=== PATIENT | male | born 1945 | race Caucasian/White ===

== ENCOUNTER → 2017-04-17 | Outpatient (CLI) | payer MEDICARE ==
[2017-04-17 13:41] LABS: HCT 42.7 % (39.0-53.0); HGB 14.4 gm/dL (13.0-17.5); MCH 31.5 pg (25.0-35.0); MCHC 33.8 g/dL (31.0-37.0); MCV 93.3 fL (80.0-100.0); Mean Platelet Volume 6.9; Platelet Count 198 k/uL (150-450); RBC 4.57 m/uL (4.30-5.90); RDW 12.6 % (11.5-15.5); WBC 5.4 k/uL (3.8-10.6)
[2017-04-17 13:49] LABS: Appearance,Urine Clear (Clear); Bilirubin,Urine Negative (Negative); Blood,Urine Negative (Negative); Color,Urine Yellow; Glucose,Urine (UA) Negative (Negative); Ketones,Urine Negative (Negative); Leukocyte Esterase,Urine Negative (Negative); Nitrite,Urine Negative (Negative); Protein,Urine Negative (Negative); Specific Gravity,Urine 1.013 (1.001-1.035); Urobilinogen,Urine <2.0 mg/dL (<2.0)
[2017-04-17 13:57] LABS: Carbon Dioxide 32 mmol/L (22-30); Chloride 100 mmol/L (98-107); Glucose 109 mg/dL (74-99); Potassium 4.8 mmol/L (3.5-5.1); Sodium 141 mmol/L (137-145)
[2017-04-17 13:58] LABS: ALT 38 U/L (21-72); AST 25 U/L (17-59); Alkaline Phosphatase 63 U/L (38-126); Anion Gap 9 mmol/L; Blood Urea Nitrogen 13 mg/dL (9-20); Calcium 9.9 mg/dL (8.4-10.2); Total Bilirubin 0.6 mg/dL (0.2-1.3); Total Protein 6.5 g/dL (6.3-8.2)
[2017-04-17 14:05] LABS: Partial Thromboplastin Time 24.1 sec (22.0-30.0); Prothrombin Time 9.6 sec (9.0-12.0)
== END | disposition home or self-care (01) ==
LOC: LABPAT 12:42
PROVIDERS: ATTEND Orthopaedic Surgery
DX: Z01.812 Encounter for preprocedural laboratory examination (principal); Z51.81 Encounter for therapeutic drug level monitoring; Z79.01 Long term (current) use of anticoagulants
CPT/HCPCS: 36415; 80053; 81003; 85027; 85610; 85730; 87070

== ENCOUNTER 2017-05-07 05:59 | Inpatient (IN) | payer MEDICARE ==
[~2017-05-07 05:59] MED LIST: ACETAMINOPHEN TAB 500 MG TAB PO ONE; DEXAMETHASONE SOD PHOSPHATE 10 MG/ML 1 ML VIAL IV ONE; MELOXICAM 7.5 MG TAB PO ONE; MIDAZOLAM 2 MG/2 ML VIAL IV PRN; MORPHINE SULFATE 4 MG/ML SYRINGE IV PRN; ONDANSETRON 4 MG/2 ML VIAL IVP ONE; SCOPOLAMINE 1.5MG/72HR PATCH TRANSDERM ONE; TRANEXAMIC ACID 1,000 MG in SODIUM CHLORIDE 0.9% 50 ML IVPB ONE; ceFAZolin IN SWFI 2 GM/20 ML SYRINGE IVP ONE
[2017-05-07] MEDS ORDERED: ROPIVACAINE 246.25 MG, EPINEPHrine 0.5 MG, KETOROLAC 30 MG, cloNIDine HCL/PF 80 MCG, WA... MISCELLANE ONE ×5 (06:01)
[2017-05-07] MEDS: LACTATED RINGERS 1,000 ML IV SCH (06:39)
[2017-05-07] MEDS ORDERED: LIDOCAINE 1% 20 ML VIAL (10MG/ML) FOR IV START INTRADERMA ONE (06:40)
[2017-05-07] MEDS ORDERED: NA PHOS,M-B/NA PHOS,DI-BA 133 ML ENEMA RECTAL PRN (07:27)
[2017-05-07] MEDS ORDERED: DIAZEPAM 5 MG TAB PO PRN ×2 (07:27)
[2017-05-07] MEDS ORDERED: hydrOXYzine PAMOATE 25 MG CAP PO PRN (07:27)
[2017-05-07] MEDS ORDERED: BISACODYL 10 MG SUPP RECTAL PRN (07:27)
[2017-05-07] MEDS ORDERED: ONDANSETRON 4 MG/2 ML VIAL IVP PRN (07:27)
[2017-05-07] MEDS ORDERED: HYDROmorphone 0.5 MG/0.5 ML SYRINGE IVP PRN ×4 (07:27)
[2017-05-07] MEDS ORDERED: MAGNESIUM HYDROXIDE 2,400 MG/10 ML CUP PO PRN (07:27)
[2017-05-07] MEDS ORDERED: NALOXONE 0.4 MG/ML 1 ML VIAL IV PRN (07:27)
[2017-05-07] MEDS ORDERED: HYDROcodone/APAP 5-325MG 1 EACH TAB PO PRN (07:27)
[2017-05-07] MEDS ORDERED: MIDAZOLAM 2 MG/2 ML VIAL ONE (07:30)
[2017-05-07] MEDS ORDERED: TRANEXAMIC ACID 1,000 MG/10 ML VIAL ONE (07:30)
[2017-05-07] MEDS ORDERED: fentaNYL (PF) 50 MCG/ML 2 ML AMP ONE (07:30)
[2017-05-07] MEDS ORDERED: SODIUM CHLORIDE 0.9% 100 ML BAG ONE (07:30)
[2017-05-07] MEDS ORDERED: diphenhydrAMINE 50 MG/ML 1 ML VIAL ONE (07:30)
[2017-05-07] MEDS ORDERED: ceFAZolin 3,000 MG in SODIUM CHLORIDE 0.9% IRRIGATIO 3,000 ML IRRIGATION ONE (07:58)
[2017-05-07] MEDS ORDERED: LACTATED RINGERS 1,000 ML IV ONE (08:13)
--- NOTE | 2017-05-07 08:13 | P.ONQ ---
Anesthesiology Proc Note - PNB - Peripheral Nerve Block Performed Left Adductor Canal Infusion Time Out Performed: Yes (710) Procedure Start Time: 07:11 Procedure Stop Time: :23 Indication: Acute Post-Operative Pain, Requested by physician Sedation Type: Sedate with meaningful contact maintained Preparation: Sterile Dressing Position: Supine Catheter: Indwelling Needle Types: On-Q Needle Size: 100mm (4") Needle Gauge: 20 Technique: Ultrasound Injectate: 0.5% Ropivacaine (see comment for volume) (30 mls) Blood Aspirated: No Pain Paresthesia on Injection Noted: No Resistance on Injection: Normal Events: Uneventful and Well Tolerated
[2017-05-07] MEDS ORDERED: ASPIRIN 325 MG TAB PO SCH (09:00)
--- NOTE | 2017-05-07 09:02 | P.OP ---
Date of Procedure: 05/07/17 Preoperative Diagnosis: Severe osteoarthritis left knee Postoperative Diagnosis: Severe osteoarthritis left knee Procedure(s) Performed: Left total knee arthroplasty Implants: Mohan and Nephew Oxinium femoral component size 7, left Mohan & Nephew Meeta II left nonporous tibial baseplate size 6 Mohan [employer] Nephew size 11 mm Legion XLPE dished articular insert, size 5-6 Mohan [employer] Nephew Meeta II resurfacing patellar component, 35 mm All components were cemented using Fran bone cement.. The articulation is Oxinium on polyethylene. Anesthesia: spinal Surgeon: Adam Farris Mental Tester #1: Carmela Nam Estimated Blood Loss (ml): 50 Pathology: other (Bone and cartilage) Condition: stable Disposition: PACU Indications for Procedure: After failure of conservative treatment we discussed the surgical and nonsurgical treatment options at length. Patient wishes to proceed with a total knee arthroplasty. Complications specific to this procedure were discussed at length, including but not limited to infection, bleeding, stiffness , and nerve injury. Patient is aware of all these complications and informed consent was obtained Operative Findings: The operative findings are consistent with severe osteoarthritis of the left knee Description of Procedure: Patient was seen in the preoperative area consent was reviewed and operative site was marked with a skin marker. An adductor canal pain catheter was placed by anesthesia in the preoperative area. Patient was then brought to the operating room and given preoperative antibiotics intravenously. A spinal anesthetic was administered by the anesthesia department. A tourniquet was placed on the upper thigh and the lower extremity was prepped and draped in usual sterile fashion. A gram of transexamic acid was given. A universal timeout was then performed which confirmed the patient's name, surgical site, ALLERGIES, and consent. The lower extremity was then exsanguinated and tourniquet was inflated to 250 mmHg. A standard and anterior midline approach to the knee was performed. The skin and subcutaneous tissue was dissected down to the patellar tendon. A medial parapatellar arthrotomy was then performed. The knee was then extended, the patellar was everted, and the knee was again flexed. Anterior horns of both menisci were excised, and a release was performed to the posterior medial aspect of the knee. On gross visual inspection, there was complete loss of articular cartilage in the medial and patellofemoral joint spaces. There was also significant cartilage damage in the lateral compartment. There were multiple periarticular osteophytes which were then removed with a Ronguer. The femoral canal was then opened with the appropriate drill, and the intramedullary femoral cutting guide was then placed and set for 4 of valgus. The distal femoral cutting block was then pinned in place, and the distal femur was then cut. The cutting block was then removed and the cut was checked for flatness. Next, the sizing guide was then placed and set for 3 external rotation based off of the epicondylar axis and Whitesides line. After the femur was sized, the appropriate 4-in-1 cutting block was then pinned in place. The anterior condyles were cut without notching. The posterior and chamfer cuts were performed while protecting the collateral ligaments. The cutting block was then removed, and the femoral canal was plugged with autologous bone. Attention was then directed to the tibia. The remaining ACL was removed with a Ronguer, and the tibia was then gently subluxed forward with a large bent knee retractor. Any remaining menisci was excised. The posterior lateral corner was cauterized in order to cauterize the lateral geniculate artery. The extra medullary tibial cutting guide was then placed, set for the appropriate rotation , slope, and depth of resection. The proximal tibia cutting guide was then pinned in place. Proximal tibia was then cut and sized. Next trials were then placed with the appropriate-sized insert. The knee was able to fully extend and flex to 130 and was stable throughout all range of motion. The knee was then extended, patella everted. Patella was then measured, and then using an osteotomy guide, the patella was cut at the appropriate level. The patella was then measured and drilled and the patella trial was then placed. The knee was then taken through range of motion with the patella trial and the patella tracked normally. The knee was then extended patella trial was then removed and the patella was everted. Knee was then flexed and lug holes were drilled through the femoral trial and the femoral trial was then removed. The tibial was then exposed, and the tibial broach guide was then pinned in place after it was set for the appropriate rotation to allow for the most coverage without overhang. The tibia was then reamed and broached. The cut surfaces of bone were then irrigated with pulsatile lavage. The posterior structures were injected with the ropivacaine solution. The knee was also irrigated with Irrisept solution. The components were then opened, the cement was mixed, and the components were then cemented in place. The cement was allowed to harden with the knee in full extension. While the cement was hardening, the remaining soft tissues were then injected with a ropivacaine solution, which consisted of 246.25 mg of ropivacaine, 0.5 mg of epinephrine, 30 mg of Toradol, 80 g of clonidine, and 48.45 mL of sterile water, for a total of 100 mL of fluid injected. After the cemented hardened. The tourniquet was released, and hemostasis was obtained. A second gram of transexamic acid was given. The knee was again irrigated. The knee was again taken through range of motion and found to be stable throughout all range of motion of 0-130 , and the patella tracked normally. The fascia was then closed with #2 strata fix suture. The subcutaneous tissue was closed with 3-0 Vicryl and 3-0 strata fix. Dermabond glue was used for the skin and placed with the knee in flexion. The patient was placed in a sterile silver dressing. Patient was then transferred to recovery room in stable condition. The fire control assistant MADELEINE Geller was required due the complexity surgery and the need for a skilled household assistant. She assisted in positioning, draping, retraction, and closure of the wound.
--- NOTE | 2017-05-07 09:51 | XR ---
EXAMINATION TYPE: XR knee limited LT DATE OF EXAM: 05/07/2017 COMPARISON: NONE TECHNIQUE: Two views submitted HISTORY: Post op FINDINGS: There is a prosthetic knee in near anatomic alignment. There is soft tissue edema and emphysema. IMPRESSION: 1. Postoperative change. Appears in near-anatomic alignment
[2017-05-07] MEDS ORDERED: ROPIVACAINE 1,100 MG, SODIUM CHLORIDE 0.9% 330 ML MISCELLANE PRN ×2 (10:22)
[2017-05-07 16:42] VITALS: BMI 32.3
[2017-05-07] MEDS ORDERED: NITROGLYCERIN SL TABS 0.4 MG TAB SUBLINGUAL PRN (18:36)
[2017-05-07] MEDS: SODIUM CHLORIDE 0.9% 1,000 ML IV SCH (19:22)
[2017-05-07] MEDS ORDERED: SENNOSIDES-DOCUSATE SODIUM 1 EACH TAB PO SCH (21:00)
[2017-05-07] MEDS ORDERED: LOSARTAN-HCTZ 50-12.5 MG 1 EACH TAB PO SCH (21:00)
[2017-05-07] MEDS ORDERED: ATORVASTATIN 80 MG TAB PO SCH (21:00)
--- NOTE | 2017-05-07 23:59 | PN ---
PROGRESS NOTE DATE OF SERVICE: 05/07/2017. ATTENDING PHYSICIAN: Dr. Farris. CONSULTING PHYSICIAN: Dr. Sukhi Walters. CHIEF COMPLAINT: Reevaluation post surgery. HISTORY OF PRESENT ILLNESS: This is a 71-year-old gentleman who has undergone a left total knee arthroplasty. At the time of my visit, the patient is actually standing up, ambulating, with well- controlled pain. REVIEW OF SYSTEMS: Neuro: Denies any headaches dizziness. Psych: No anxiety. Cardiac: No chest pain, angina, palpitations. Respiratory: No shortness of breath, cough, hemoptysis. GI: No nausea, vomiting, abdominal pain, diarrhea. : No dysuria, hematuria. Extremities: Denies pain. Constitutional: No fevers, chills. PHYSICAL EXAMINATION: Pleasant, in no distress. VITAL SIGNS: Temperature 97.8, pulse 69, respirations 16, blood pressure 133/79, pulse ox 93% room air. HEENT: Normocephalic. NECK: No JVD. CHEST: Clear to auscultation and percussion. CARDIAC: Normal S1, S2 with no gallops, murmurs, rubs. EXTREMITIES: Reveal left leg with an Josias wrap. NEUROLOGIC: Awake, alert, oriented, well-coordinated movements of both upper extremities. The patient is ambulating with a walker. LABORATORY ASSESSMENT: None new. ASSESSMENT: 1. Coronary artery disease, stable. 2. Hypertension, controlled. 3. History of benign tremors. 4. Status post left total knee arthroplasty. PLAN: The patient is stable. Continue present medical regimen. Patient's condition discussed with the patient. MMODL / IJN: [id number] /
[2017-05-08] MEDS: ASPIRIN 325 MG TAB PO SCH ×2 (00:39→08:22)
[2017-05-08] MEDS: SODIUM CHLORIDE 0.9% 1,000 ML IV SCH ×2 (01:57→02:26)
[2017-05-08] MEDS: ceFAZolin IN SWFI 2 GM/20 ML SYRINGE IVP SCH ×2 (02:22→10:57)
[2017-05-08] MEDS: HYDROcodone/APAP 5-325MG 1 EACH TAB PO PRN ×2 (05:16→10:27)
--- NOTE | 2017-05-08 07:15 | P.PN ---
Progress Note - Text The patient is status post left adductor canal catheter placement. The catheter was placed for postoperative pain control, status post total left arthroplasty. Ropivacaine 0.2% is infusing at 8 mLs per hour. The patient has no complaints of left lower extremity numbness or weakness. Patient's VAS score is 1 -10. Assessment: Patient's adductor canal catheter is in place and working appropriately. Plan: continue infusion and adjust it as needed.
[2017-05-08 07:23] LABS: Basophils % (A) 0 %; Eosinophils # (A) 0.1 k/uL (0-0.7); Eosinophils % (A) 1 %; HCT 35.6 % (39.0-53.0); HGB 11.9 gm/dL (13.0-17.5); Lymphocytes # (A) 1.1 k/uL (1.0-4.8); Lymphocytes % (A) 11 %; MCH 30.8 pg (25.0-35.0); MCHC 33.4 g/dL (31.0-37.0); MCV 92.2 fL (80.0-100.0); Mean Platelet Volume 7.2; Monocytes # (A) 0.7 k/uL (0-1.0); Monocytes % (A) 7 %; Neutrophils # (A) 7.6 k/uL (1.3-7.7); Neutrophils % (A) 79 %; Platelet Count 169 k/uL (150-450); RBC 3.85 m/uL (4.30-5.90); RDW 12.2 % (11.5-15.5); WBC 9.6 k/uL (3.8-10.6)
[2017-05-08] MEDS: LACTATED RINGERS 1,000 ML IV SCH (08:20)
[2017-05-08] MEDS ORDERED: MELOXICAM 7.5 MG TAB PO SCH (09:00)
[2017-05-08] MEDS ORDERED: MAGNESIUM OXIDE 400 MG TAB PO SCH (09:00)
[2017-05-08] MEDS ORDERED: PROPRANOLOL LA 80 MG CAP.SA.24H PO SCH (09:00)
--- NOTE | 2017-05-08 09:41 | P.DS ---
Providers Date of admission: 05/07/17 05:59 Expected date of discharge: 05/08/17 Attending physician: Adam Farris Consults: 05/07/17 07:27 Consult Physician Routine Consulting Provider: Pedro Walters Consult Reason/Comments: medical management Do you want consulting provider notified?: Yes Primary care physician: Pedro Walters - Discharge Diagnosis(es) (1) Primary osteoarthritis of left knee Current Visit: Yes Status: Acute (2) S/P total knee arthroplasty Current Visit: Yes Status: Acute Hospital Course: This is a 71-year-old male with known history of degenerative arthritis of the left knee. The patient presents for evaluation. After discussion and consideration patient elects to proceed with total knee arthroplasty. The patient is seen preoperatively by Dr. Farris and cleared for surgery. Patient is admitted to [facility] on 05/07/2017 for total knee arthroplasty. The procedures performed without complication or sequelae. The patient is doing well postoperatively. Labs and vital signs are stable on day of discharge. On day of discharge patient's knee incision is healing well. There is minimal erythema. There is no drainage noted at this time. There is minimal soft tissue swelling to the knee. Patient has full foot and ankle motion without difficulty or pain. Neurovascular status to the left lower extremity is intact. Patient is discharged home in good condition. Please see med rec for accurate list of home medications. Plan - Discharge Summary Discharge Rx Participant: No New Discharge Prescriptions: New Aspirin 325 mg PO BID #60 tab HYDROcodone/APAP 5-325MG [Omro 5-325] 1 - 2 tab PO Q4-6H PRN #90 tab PRN Reason: Pain Sennosides [Senokot] 1 tab PO BID #60 tablet No Action Propranolol LA [Inderal LA] 80 mg PO QAM Magnesium Gluconate [Magonate] 500 mg PO DAILY Losartan-Hctz 50-12.5 mg [Hyzaar 50-12.5] 0.5 tab PO HS Atorvastatin [Lipitor] 80 mg PO HS #90 tab Nitroglycerin Sl Tabs [Nitrostat] 0.4 mg SUBLINGUAL Q5M PRN #25 tab PRN Reason: Chest Pain Furosemide [Lasix] 40 mg PO QAM PRN PRN Reason: LEG EDEMA Aspirin [Adult Low Dose Aspirin EC] 81 mg PO DAILY Discharge Medication List Propranolol LA [Inderal LA] 80 mg PO QAM 02/23/14 [History] Losartan-Hctz 50-12.5 mg [Hyzaar 50-12.5] 0.5 tab PO HS 11/15/15 [History] Magnesium Gluconate [Magonate] 500 mg PO DAILY 11/15/15 [History] Atorvastatin [Lipitor] 80 mg PO HS #90 tab 12/07/15 [Rx] Nitroglycerin Sl Tabs [Nitrostat] 0.4 mg SUBLINGUAL Q5M PRN #25 tab 12/07/15 [Rx ] Aspirin [Adult Low Dose Aspirin EC] 81 mg PO DAILY 04/26/17 [History] Furosemide [Lasix] 40 mg PO QAM PRN 04/26/17 [History] Aspirin 325 mg PO BID #60 tab 05/08/17 [Rx] HYDROcodone/APAP 5-325MG [Omro 5-325] 1 - 2 tab PO Q4-6H PRN #90 tab 05/08/17 [ Rx] Sennosides [Senokot] 1 tab PO BID #60 tablet 05/08/17 [Rx] Follow up Appointment(s)/Referral(s): Adam Farris DO [Doctor of Osteopathic Medicine] - 05/21/17 9:45 am Ambulatory/Diagnostic Orders: Continuous Passive Motion (CPM) Machine [DME.AMB1] Time Frame: 3 Weeks, Location : Determined By Patient Activity/Diet/Wound Care/Special Instructions: Weightbearing as tolerated with a walker CPM 5-6h daily Leave dressing intact. May be removed by home care nurse in 10 days, 05/18/2017. May shower with dressing on. [facility] with questions or concerns [phone] Discharge Disposition: HOME WITH HOME HEALTH SERVICES
[2017-05-08 14:18] VITALS: BP 128/73; PULSE 78; RESP 17; TEMP 98.5
--- NOTE | 2017-05-08 23:42 | PN ---
PROGRESS NOTE ATTENDING PHYSICIAN: Dr. Adam Farris. CONSULTING PHYSICIAN: Dr. Daryl Walters. CHIEF COMPLAINT: Re-evaluation. HISTORY OF PRESENT ILLNESS: This gentleman is 79 years of age. He is status post left total knee arthroplasty. He is doing fairly well. The patient had some more discomfort today compared to yesterday; however, is still able to ambulate. The patient has a history of coronary artery disease, stable with no symptoms of angina. History of hypertension, controlled. History of benign tremors, controlled. REVIEW OF SYSTEMS: NEURO: Denies any headaches or dizziness. PSYCH: No anxiety. CARDIAC: No chest pain, angina, palpitations. RESPIRATORY: No shortness of breath, cough. GI: No nausea, vomiting, abdominal pain, diarrhea. Did have a bowel movement. : No symptoms of dysuria, hematuria. EXTREMITIES: Pain in the left knee. CONSTITUTIONAL: No fever or chills. PHYSICAL EXAMINATION: Pleasant gentleman in no distress. Vital signs reveals temperature 97.1, pulse 69, respirations 16, blood pressure 148/86, pulse ox 95% on room air. HEENT: Normocephalic. NECK: No JVD. CHEST: Clear to auscultation and percussion. CARDIAC: Normal S1, S2 with no gallops, murmurs. ABDOMEN: Soft. Bowel sounds present. EXTREMITIES: No edema. NEUROLOGIC: Awake, alert, oriented with well-coordinated movements, both upper extremities. LABORATORY ASSESSMENT: CBC which reveals a hemoglobin of 11.9. ASSESSMENT: 1. Coronary artery disease, stable. 2. Hypertension, controlled. 3. Benign tremors. 4. Degenerative arthritis, left knee. PLAN: Patient is stable. Continue present medical regimen. Patient's condition discussed with the patient. Prognosis guarded. The patient is planned for discharge today. MMODL / IJN: [id number] /
== END 2017-05-08 15:25 | disposition home health service (06) | DRG 470 ==
LOC: 2ORMAIN 05:59 → 3SUR 15:43
PROVIDERS: ADMIT Orthopaedic Surgery; ATTEND Orthopaedic Surgery
PROC: 0SRD069 Replacement of Left Knee Joint with Oxidized Zirconium on Polyethylene Synthetic Substitute, Cemented, Open Approach (ICD-10-PCS; principal; 2017-05-07 07:30)
DX: M17.12 Unilateral primary osteoarthritis, left knee (principal); E78.5 Hyperlipidemia, unspecified; G25.0 Essential tremor; I10 Essential (primary) hypertension; I25.10 Atherosclerotic heart disease of native coronary artery without angina pectoris; H91.90 Unspecified hearing loss, unspecified ear; M25.561 Pain in right knee; M25.551 Pain in right hip; Z79.82 Long term (current) use of aspirin; Z79.899 Other long term (current) drug therapy; Z96.651 Presence of right artificial knee joint; Z96.642 Presence of left artificial hip joint; Z82.49 Family history of ischemic heart disease and other diseases of the circulatory system
CPT/HCPCS: 85025; 88300

== ENCOUNTER → 2018-01-12 | Outpatient (CLI) | payer MEDICARE ==
[2018-01-12 18:01] LABS: C Reactive Protein <0.4 mg/dL (0.0-0.8); Carbon Dioxide 26.4 mmol/L (21.6-31.8); Chloride 105 mmol/L (96-109); Cholesterol 129 mg/dL (0-200); Creatine Kinase 102 U/L (35-257); Glucose 105 mg/dL (70-110); Potassium 4.1 mmol/L (3.5-5.5); Sodium 140 mmol/L (135-145)
[2018-01-12 18:02] LABS: ALT 27 U/L (10-49); AST 23 U/L (14-35); Albumin/Globulin Ratio 2.15 (1.20-2.10); Alkaline Phosphatase 59 U/L (41-126); Calcium 9.4 mg/dL (8.7-10.3); Total Bilirubin 0.9 mg/dL (0.3-1.2); Total Protein 6.3 g/dL (6.2-8.2)
== END ==
LOC: LABWHC1 11:20
PROVIDERS: ATTEND Internal Medicine
DX: I25.10 Atherosclerotic heart disease of native coronary artery without angina pectoris (principal); E78.5 Hyperlipidemia, unspecified; M79.10 Myalgia, unspecified site
CPT/HCPCS: 36415; 80053; 80061; 82550; 86140

== ENCOUNTER → 2018-05-21 | Outpatient (CLI) | payer MEDICARE ==
[2018-05-21 11:26] LABS: Blood Urea Nitrogen 17 mg/dL (9-20)
--- NOTE | 2018-05-21 12:56 | CT ---
EXAMINATION TYPE: CT chest w con DATE OF EXAM: 05/21/2018 COMPARISON: Chest x-ray April 16, 2018 HISTORY: Wheezing, shortness of breath being treated with little relief CT DLP: 721 mGycm. Automated Exposure Control for Dose Reduction was Utilized. TECHNIQUE: CT scan of the thorax is performed following with IV Contrast, patient injected with 100 mL of Isovue 300. FINDINGS: LUNGS: The lungs are grossly clear, there is no concerning parenchymal mass or nodule identified. T here is no pleural effusion or pneumothorax seen. The tracheobronchial tree is patent. MEDIASTINUM: There are no greater than 1 cm hilar or mediastinal lymph nodes. No cardiomegaly or pe ricardial effusion is seen. Moderate to severe 3 vessel coronary artery calcification is present. OTHER: Dependent calcified gallstone is seen. There are 2 subcentimeter low dense lesions scattered t hroughout the liver that are too small to further characterize but presumed benign, for reference lar julius lesion left hepatic dome axial image 50 is noted. Liver is diffusely low dense suggesting fatty i nfiltration. IMPRESSION: No suspicious acute or chronic pulmonary process.
== END ==
LOC: RADCTMAIN 10:45
PROVIDERS: ATTEND Internal Medicine Critical Care Medicine
DX: J20.9 Acute bronchitis, unspecified (principal)
CPT/HCPCS: 82565; 84520; 71260; 36415; Q9967

== ENCOUNTER → 2020-03-08 | Outpatient (CLI) | payer MEDICARE ==
--- NOTE | 2020-03-09 11:02 | MR ---
EXAMINATION TYPE: MR lumbar spine wo con DATE OF EXAM: 03/08/2020 COMPARISON: None HISTORY: 74-year-old male M25.5, with pain in the bilateral lower extremities TECHNIQUE: Multiplanar, multisequence images of the lumbar spine were acquired. FINDINGS: There is a degenerated levoconvex scoliosis of the lumbar spine. Vertebral body heights are preserved. There is a degenerative grade 1 retrolisthesis at L1-L2 and L2-L3. Multilevel advanced hypertrophic facet arthropathy. Moderate degenerative disc disease with desiccated, mildly narrowed, diffusely bulging discs. Anterio r endplate spondylosis is present. Conus medullaris is normal. No suspicious bone marrow replacement. Some mild scattered fatty Modic type II endplate changes prese nt anteriorly at various levels. At T12-L1, diffuse disc bulge impressing on the ventral thecal sac. No significant canal or foraminal stenosis. At L1-L2, facet arthropathy with trace grade 1 retrolisthesis and diffuse disc bulge impressing on th e ventral thecal sac. No significant spinal canal stenosis. There is mild left neuroforaminal stenosi s and possible abutment of the traversing left L2 nerve root. At L2-L3, hypertrophic facet arthropathy with ligamentum flavum thickening, grade 1 retrolisthesis, d iffuse disc bulge. Overall mild narrowing of the spinal canal. There is moderate right neuroforaminal stenosis. Right lateral broad-based disc bulge may impinge the extraforaminal right L2 nerve root. At L3-L4, diffuse disc bulge. Prominent dorsal epidural fat and ligamentum flavum thickening as well as facet arthropathy. There is overall mild spinal canal stenosis with moderate right and mild left n euroforaminal stenosis. Disc material may abut the traversing right L4 nerve root. At L4-L5, diffuse disc bulge with hypertrophic facet arthropathy. No significant spinal canal stenosi s. There is moderate bilateral neuroforaminal stenosis. At L5-S1, hypertrophic facet arthropathy. Minimal bulging disc. No spinal canal stenosis. Moderate to severe left and mild right neural foraminal stenosis. No prevertebral or paravertebral soft tissue abnormality. IMPRESSION: 1. Degenerated levoconvex scoliosis of the lumbar spine. 2. Hypertrophic facet arthropathy with degenerative grade 1 retrolisthesis at L1-L2 and L2-L3. 3. Changes results in overall mild spinal canal stenosis at L2-L3 and L3-L4. No high-grade canal comp romise. 4. Moderate to severe left neural foraminal stenosis at L5-S1. Moderate on both sides at L4-L5 and mo derate on the right at both L2-L3 and L3-L4. 5. At L1-L2, disc material may abut the traversing left L2 nerve root. A large lateral disc bulge tow ards the right at L2-L3 may impinge the extraforaminal right L2 nerve root. Also, there may be abutme nt of the traversing right L4 nerve root at L3-L4. Correlate for any corresponding radicular symptoms .
== END | disposition home or self-care (01) ==
LOC: RADMRIMAIN 13:14
PROVIDERS: ATTEND Orthopaedic Surgery
DX: M48.07 Spinal stenosis, lumbosacral region (principal); M48.061 Spinal stenosis, lumbar region without neurogenic claudication; M51.26 Other intervertebral disc displacement, lumbar region; M43.16 Spondylolisthesis, lumbar region; M47.816 Spondylosis without myelopathy or radiculopathy, lumbar region; M41.86 Other forms of scoliosis, lumbar region
CPT/HCPCS: 72148

== ENCOUNTER → 2020-04-19 | Outpatient (CLI) | payer MEDICARE ==
[2020-04-19 10:59] VITALS: BP 149/90; PULSE 80; RESP 18; TEMP 97.2
--- NOTE | 2020-04-19 11:20 | P.PAINCN ---
History of Present Illness - Reason for Consult Consult date: 04/19/20 - History of Present Illness This is 74 years old male with a chronic history of severe low back pain with radiation to the lower extremity started more than 5 years ago, intensity overall of the pain increased over time, the pain currently is constant and localized in the low back area with radiation to the hip and buttock bilaterally more prominent on the right side, patient tried different kind of pain medication without any significant benefit, intensity of the pain is 8-10 over 10 interfering with her quality of life, he denies any motor or sensory deficits he denies any fever or night sweats with and that is no change in the bowel movement or urination Past Medical History Past Medical History: Coronary Artery Disease (CAD), COPD, GERD/Reflux, Hyperlipidemia, Hypertension, Osteoarthritis (OA) Additional Past Medical History / Comment(s): Tinnitis bilateral ears, essential tremors, occasional edema reanna legs History of Any Multi-Drug Resistant Organisms: MRSA Year Discovered:: 2017 MDRO Source:: leg Past Surgical History: Joint Replacement, Orthopedic Surgery, Tonsillectomy Additional Past Surgical History / Comment(s): rt knee replacement x2, 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 Smoking Status: Former smoker Past Alcohol Use History: Occasional Additional Past Alcohol Use History / Comment(s): smoked for a couple years in eary 20's Past Drug Use History: None Reported - Past Family History Sister(s) Family Medical History: Cancer Additional Family Medical History / Comment(s): Twin sisters with breast cancer. Mother Family Medical History: Osteoarthritis (OA) Father Family Medical History: Osteoarthritis (OA) Additional Family Medical History / Comment(s): Father is living and is in his 90's. Medications and Allergies Home Medications Medication Instructions Recorded Confirmed Type Magnesium Gluconate [Magonate] 500 mg PO DAILY 11/15/15 04/19/20 History Aspirin [Adult Low Dose Aspirin EC] 81 mg PO DAILY 04/26/17 04/19/20 History Albuterol Nebulized [Ventolin 2.5 mg INHALATION Q6H PRN 04/15/20 04/19/20 History Nebulized] Atorvastatin [Lipitor] 40 mg PO DAILY 04/15/20 04/19/20 History Budesonide-Formot 160-4.5 Mcg 2 puff INHALATION BID PRN 04/15/20 04/19/20 History [Symbicort 160-4.5 Mcg Inhaler] Celecoxib [CeleBREX] 200 mg PO DAILY 04/15/20 04/19/20 History Furosemide [Lasix] 40 mg PO DAILY PRN 04/15/20 04/19/20 History Hydrochlorothiazide 12.5 mg PO DAILY 04/15/20 04/19/20 History [hydroCHLOROthiazide] Ipratropium Dorset 0.06%Nasal 1 spr EA NOSTRIL TID PRN 04/15/20 04/19/20 History [Atrovent Nasal 0.06%] Losartan Potassium [Cozaar] 50 mg PO DAILY 04/15/20 04/19/20 History Metoprolol Succinate [Toprol XL] 75 mg PO DAILY 04/15/20 04/19/20 History Omeprazole 20 mg PO HS 04/15/20 04/19/20 History Triamcinolone 0.1% Cream [Kenalog 1 applic TOPICAL DIRECTED PRN 04/15/20 04/19/20 History 0.1% Cream] Ubidecarenone [Co Q-10] 100 mg PO DAILY 04/15/20 04/19/20 History traMADol HCL [Ultram] 50 mg PO Q6HR PRN 04/15/20 04/19/20 History Allergies Allergy/AdvReac Type Severity Reaction Status Date / Time No Known Allergies Allergy Verified 04/15/20 15:44 Physical Exam Vitals: Vital Signs Temp Pulse Resp BP Pulse Ox 04/19/20 10:48 97.2 F L 80 18 149/90 97 Physical Examinations : -Constitutiona : Cooperative , not in acute distress . -HEENT : nech : supple , no Lymphadenopathy , normal thyroid size . : eyes : no ptosis , no icterus, no photophobia . - neurologic : Cranial nerve II to XII intact , no focal neurological deffecit . -psychatric : alert , oriented X 3 , appropriate affect , intact judgment and insight . -Lymphatic : no Lymphadenopathy . - musculoskeltal : Lumber spine moter stegnth lower extremities ,thigh and legs 5/5 Right side , 5/5 Left side deep tendon reflexes : normal Knee Jerk , normal ankle Jerk lumber facet Loading Test =positive Right , positive Left Range of motion of the lumbar spine Flexion 60 degrees, extension 30 degrees strait leg raising test = negative bilaterally Fabere test= negative bilaterally . Sever tenderness over the right Sacroiliac joints Results Comments: MRI of the lumbar spine multilevel lumbar facet arthropathy at T11 lumbar degenerative disc disease and multilevel lumbar foraminal stenosis Assessment and Plan Plan: Assessment and plan=1-lumbar spondylosis with lumbar facet arthropathy without myelopathy. 2-lumbar degenerative disc disease. 3-right sacroiliitis. A shunt would be good candidate to diagnostic medial branch blocks lumbar area at L3, L4, L5 and possible RFA Time with Patient: Greater than 30 PQRS Measure Charge Sheet Measure #130: Documentation of Current Meds in Medical Chart: Patient's medications documented in chart Measure #226: Tobacco Use: Screen & Cessation Intervention: Pt not a tobacco user Measure #111: Pneumonia Vaccination: Pneumococcal vaccine NOT administered or previously given Measure #47: Advance Care Plan: Advance care planning discussed & documented, pt chose/unable to give Measure #412: Opioid Treatment Agreement: No documentation of signed opioid treatment agreement Measure #408: Opioid Therapy Follow-up Evaluation: Patient had NO f/u eval minimum every 3 months during opioid therapy Measure #317: Preventitive Care & Scrn High Bld Press & F/U: Pre-hypertensive or hypertensive BP documented, pt will f/u with PCP Measure #128: Body Mass Index (BMI) Screening & Follow-up: BMI documented ABOVE normal parameters - f/u documented Measure #131: Pain Assessment & Follow-up: Pain positive & plan documented, Follow-up scheduled Measure #431: Unhealthy Alcohol Use Preventative Care & Scrn: Patient not identified as an unhealthy alcohol user PQRS Narrative: Smoking Status Never smoker Blood Pressure 149/90 Pain Intensity [Bilateral Knee 5 ] Pain Intensity [Bilateral 5 Lower Back] Scale Used Numeric (1 - 10) Hx Alcohol Use (MH) Yes Home Medications: Ambulatory Orders Magnesium Gluconate [Magonate] 500 mg PO DAILY 11/15/15 Aspirin [Adult Low Dose Aspirin EC] 81 mg PO DAILY 04/26/17 Albuterol Nebulized [Ventolin Nebulized] 2.5 mg INHALATION Q6H PRN 04/15/20 Atorvastatin [Lipitor] 40 mg PO DAILY 04/15/20 Budesonide-Formot 160-4.5 Mcg [Symbicort 160-4.5 Mcg Inhaler] 2 puff INHALATION BID PRN 04/15/20 Celecoxib [CeleBREX] 200 mg PO DAILY 04/15/20 Furosemide [Lasix] 40 mg PO DAILY PRN 04/15/20 Hydrochlorothiazide [hydroCHLOROthiazide] 12.5 mg PO DAILY 04/15/20 Ipratropium Dorset 0.06%Nasal [Atrovent Nasal 0.06%] 1 spr EA NOSTRIL TID PRN 04/15/20 Losartan Potassium [Cozaar] 50 mg PO DAILY 04/15/20 Metoprolol Succinate [Toprol XL] 75 mg PO DAILY 04/15/20 Omeprazole 20 mg PO HS 04/15/20 Triamcinolone 0.1% Cream [Kenalog 0.1% Cream] 1 applic TOPICAL DIRECTED PRN 04/15/20 Ubidecarenone [Co Q-10] 100 mg PO DAILY 04/15/20 traMADol HCL [Ultram] 50 mg PO Q6HR PRN 04/15/20
== END | disposition home or self-care (01) ==
LOC: PNWHC3 10:26
PROVIDERS: ATTEND Specialist
DX: M51.36 Other intervertebral disc degeneration, lumbar region (principal); M47.816 Spondylosis without myelopathy or radiculopathy, lumbar region; M46.1 Sacroiliitis, not elsewhere classified; Z79.899 Other long term (current) drug therapy; Z79.891 Long term (current) use of opiate analgesic; Z79.82 Long term (current) use of aspirin
CPT/HCPCS: 99211

== ENCOUNTER 2020-05-07 09:39 | Day surgery (SDC) | payer MEDICARE ==
[2020-05-04 15:25] VITALS: BMI 31.6
[~2020-05-07 09:39] MED LIST changes: -ACETAMINOPHEN TAB 500 MG TAB PO ONE; -DEXAMETHASONE SOD PHOSPHATE 10 MG/ML 1 ML VIAL IV ONE; +LACTATED RINGERS 1,000 ML IV SCH; -MELOXICAM 7.5 MG TAB PO ONE; -MIDAZOLAM 2 MG/2 ML VIAL IV PRN; -MORPHINE SULFATE 4 MG/ML SYRINGE IV PRN; -ONDANSETRON 4 MG/2 ML VIAL IVP ONE; -SCOPOLAMINE 1.5MG/72HR PATCH TRANSDERM ONE; -TRANEXAMIC ACID 1,000 MG in SODIUM CHLORIDE 0.9% 50 ML IVPB ONE; -ceFAZolin IN SWFI 2 GM/20 ML SYRINGE IVP ONE
[2020-05-07 10:01] VITALS: RESP 16; TEMP 97.1
[2020-05-07] MEDS ORDERED: LIDOCAINE 1% (10MG/ML) FOR IV START INTRADERMA ONE (10:07)
[2020-05-07] MEDS ORDERED: ROPIVACAINE 5MG/ML 20ML VIAL ONE (10:11)
[2020-05-07] MEDS ORDERED: fentaNYL (PF) 50 MCG/ML 2 ML AMP ONE (10:11)
[2020-05-07] MEDS ORDERED: TRIAMCINOLONE ACETONIDE 40 MG/ML 1 ML VIAL ONE (10:11)
[2020-05-07] MEDS ORDERED: IOPAMIDOL M200 10 ML VIAL ONE (10:11)
[2020-05-07] MEDS ORDERED: MIDAZOLAM 2 MG/2 ML VIAL ONE (10:11)
--- NOTE | 2020-05-07 10:26 | P.PCN ---
Date of Procedure: 05/07/20 Description of Procedure: PREOPERATIVE DIAGNOSIS : Lumbar spondylosis with Facet Arthropathy without myelopathy POSTOPERATIVE DIAGNOSIS: same PROCEDURE: [first/second] Diagnostic lumbar medial branch block with fluoroscopy at L3, L4, L5 [bilateral] which covers facets L4-5 and L5-S1 ANESTHESIA: Local anesthetic; moderate IV sedation with Versed and fentanyl, sedation time 10 min Fluoroscopy was used for the procedure and images were saved in the radiology portion of the chart. Surgeon: Martin Glover MD PROCEDURE INDICATION: Lumbar back pain without radiculopathy, not responsive to conservative management. PROCEDURE DESCRIPTION: the patient was seen and identified in the preop holding area , risks and benefits and possible complications of the procedure and alternatives were discussed with the patient, and the patient agreed to proceed with the procedure and signed the consent . IV was started , vital signs were monitored during the procedure and fluoroscopy was used to maximize the benefit and accuracy of the needle placement, and sedation was given to decrease p atient anxiety. Patient was taken to the procedure room and placed in prone position. The lumbar region was prepped using chlorhexidineX-2. Under strict sterile technique using AP fluoroscopy the bilateral sacral ala were identified and using ipsilateral oblique fluoroscopy ,the junction of the transverse process and the superior articulating process of the L4, L5 vertebra which corresponds to the fluoroscopy image of the eye of the Amadou dog for the medial branches were identified. Subsequently, after local infiltration of skin with lidocaine 1% 0.2 mL at each level , a 25-gauge 3.5 Quincke-type needle was placed at the junction of the base of the transverse process and the superior articular process at the appropriate level as well as the sacral ala, and the needle was advanced until the periosteum contacted, needle placement confirmed with AP and oblique fluoroscopy, 0.2 mL of Isovue 200 per level was injected which revealed no vascular uptake and after negative aspiration, mixture of 1mL 0.5% ropivacaine with 40 mg kenalog (total 40 mg used throughout all levels) was injected at each level and the needle subsequently removed . At the end of the procedure and the needles were removed and a bandage applied after the skin was cleaned. The patient was taken to recovery room in stable condition and monitors in the recovery room for 20-30 minutes and discharged home in stable condition after discharge criteria met and patient will follow up in clinic in 2 weeks EBL: Minimal COMPLICATION: None.
[2020-05-07] MEDS ORDERED: IV FLUID CONTINUATION 700 ML IV ONE (10:30)
[2020-05-07 10:59] VITALS: BP 138/73; PULSE 64
--- NOTE | 2020-05-07 11:12 | FL ---
EXAMINATION TYPE: FL guided pain mgmt statistic DATE OF EXAM: 05/07/2020 HISTORY: Fluoroscopy time 8 seconds of fluoroscopy provided. IMPRESSION: 1. Fluoroscopy time.
== END 2020-05-07 11:05 | disposition home or self-care (01) ==
LOC: ORPAIN 09:39
PROVIDERS: ATTEND Anesthesiology
DX: M47.816 Spondylosis without myelopathy or radiculopathy, lumbar region (principal); R20.2 Paresthesia of skin; R20.0 Anesthesia of skin; G25.0 Essential tremor; I25.10 Atherosclerotic heart disease of native coronary artery without angina pectoris; I10 Essential (primary) hypertension; E78.5 Hyperlipidemia, unspecified; J44.9 Chronic obstructive pulmonary disease, unspecified; M19.90 Unspecified osteoarthritis, unspecified site; H91.90 Unspecified hearing loss, unspecified ear; K21.9 Gastro-esophageal reflux disease without esophagitis; Z79.891 Long term (current) use of opiate analgesic; Z79.899 Other long term (current) drug therapy; Z79.1 Long term (current) use of non-steroidal anti-inflammatories (NSAID); Z79.51 Long term (current) use of inhaled steroids; Z79.82 Long term (current) use of aspirin
CPT/HCPCS: 64493; 64494; J2250; J3301; J3010; Q9966; J2795

== ENCOUNTER → 2020-05-24 | Outpatient (CLI) | payer MEDICARE ==
--- NOTE | 2020-05-24 10:15 | P.PN ---
Subjective Progress Note Date: 05/24/20 This is a follow-up visit for this 74 years old male with a history of severe low back pain, he is diagnosed with lumbar spondylosis with lumbar facet arthropathy with radiculopathy, and lumbar degenerative disc disease and sacroiliitis, status post diagnostic medial branch block lumbar area, at L3, and L4, L5, Amena reported that he gets more than 80% improvement in his pain, and he was able to do more activity , and he decreased his opioid consumption, particularly if was only for short-term, and is here for follow-up visit and evaluation Objective - Vital Signs Vital signs: Vital Signs Temp 98.6 F 05/24/20 09:51 Pulse 77 05/24/20 09:51 Resp 16 05/24/20 09:51 BP 119/74 05/24/20 09:51 Pulse Ox 90 L 05/24/20 09:51 Intake & Output 05/23/20 05/24/20 05/24/20 18:59 06:59 18:59 Weight 112.491 kg - Exam Physical Examinations : -Constitutiona : Cooperative , not in acute distress . -HEENT : nech : supple , no Lymphadenopathy , normal thyroid size . : eyes : no ptosis , no icterus, no photophobia . - neurologic : Cranial nerve II to XII intact , no focal neurological deffecit . -psychatric : alert , oriented X 3 , appropriate affect , intact judgment and insight . -Lymphatic : no Lymphadenopathy . - musculoskeltal : Lumber spine moter stegnth lower extremities ,thigh and legs 5/5 Right side , 5/5 Left side deep tendon reflexes : normal Knee Jerk , normal ankle Jerk lumber facet Loading Test =positive Right , positive Left Range of motion of the lumbar spine Flexion 60 degrees, extension 30 degrees strait leg raising test = negative bilaterally Fabere test= negative bilaterally . Sever tenderness over the right Sacroiliac joints Assessment and Plan Plan: Assessment and plan=1-lumbar spondylosis with lumbar facet arthropathy 2-Lumbar degenerative disc disease. 3-sacroiliitis. Patient had excellent pain relief after the first diagnostic medial branch block and he'll be good candidate to have second diagnostic Medial branch at L3, L4, L5 bilaterally - PQRS measures = - Patient's medications are documented in the chart. -Tobacco use is negative and counseling.Given. -Patient's has not received pneumococcal vaccine. -Advanced care planning discussed, patient not eligible. -Opiate contract not signed. -Pain positive and follow-up visit/procedure is scheduled. -Patient's blood pressure measured [ 118/74] , and documented in the record ,and patient will follow up with the primary care. -Patient's weight was measured and body mass index [ 31.8 ] above the normal limits and counseling was done. and patient instructed to follow-up with the primary care physician. -Patient was not identified as an unhealthy alcohol user Time with Patient: Less than 30
== END | disposition home or self-care (01) ==
CPT/HCPCS: 99211

== ENCOUNTER 2020-06-11 07:21 | Day surgery (SDC) | payer MEDICARE ==
[2020-06-10 09:32] VITALS: BMI 31.6
[2020-06-11 07:53] VITALS: RESP 16; TEMP 98.2
[2020-06-11] MEDS ORDERED: TRIAMCINOLONE ACETONIDE 40 MG/ML 1 ML VIAL ONE (07:58)
[2020-06-11] MEDS ORDERED: ROPIVACAINE 5MG/ML 20ML VIAL ONE (07:58)
--- NOTE | 2020-06-11 08:11 | P.PCN ---
Date of Procedure: 06/11/20 Surgeon: Mary Acosta Pathology: none sent Condition: stable Disposition: PACU Description of Procedure: Description of Procedure: PREOPERATIVE DIAGNOSIS : Lumbar spondylosis with Facet Arthropathy without myelopathy POSTOPERATIVE DIAGNOSIS: same PROCEDURE: [first/second] Diagnostic lumbar medial branch block with fluoroscopy at L3, L4, L5 [bilateral] which covers facets L4-5 and L5-S1 ANESTHESIA: Local anesthesia with lidocaine 1% only Fluoroscopy was used for the procedure and images were saved in the radiology portion of the chart. PROCEDURE INDICATION: Lumbar back pain without radiculopathy, not responsive to conservative management. PROCEDURE DESCRIPTION: the patient was seen and identified in the preop holding area , risks and benefits and possible complications of the procedure and alternatives were discussed with the patient, and the patient agreed to proceed with the procedure and signed the consent . IV was started , vital signs were monitored during the procedure and fluoroscopy was used to maximize the benefit and accuracy of the needle placement, and sedation was given to decrease patient anxiety. Patient was taken to the procedure room and placed in prone position. The lumbar region was prepped using chlorhexidineX-2. Under strict sterile technique using AP fluoroscopy the bilateral sacral ala were identified and using ipsilateral oblique fluoroscopy ,the junction of the transverse process and the superior articulating process of the L4, L5 vertebra which corresponds to the fluoroscopy image of the eye of the Amadou dog for the medial branches were identified. Subsequently, after local infiltration of skin with lidocaine 1% 0.2 mL at each level , a 25-gauge 3.5 Quincke-type needle was placed at the junction of the base of the transverse process and the superior articular process at the appropriate level as well as the sacral ala, and the needle was advanced until the periosteum contacted, needle placement confirmed with AP and oblique fluoroscopy, 0.2 mL of Isovue 200 per level was injected which revealed no vascular uptake and after negative aspiration, mixture of 1mL 0.5% ropivacaine with 40 mg kenalog (total 40 mg used throughout all levels) was injected at each level and the needle subsequently removed . At the end of the procedure and the needles were removed and a bandage applied after the skin was cleaned. The patient was taken to recovery room in stable condition and monitors in the recovery room for 20-30 minutes and discharged home in stable condition after discharge criteria met and patient will follow up in clinic in 2 weeks EBL: Minimal COMPLICATION: None.
[2020-06-11 08:17] VITALS: BP 162/79; PULSE 73
--- NOTE | 2020-06-11 13:02 | FL ---
Fluoroscopy HISTORY: Pain 6 seconds fluoroscopy time supplied to the referring clinician. 4 intraoperative C-arm images docume nt the procedure. See dictated report from anesthesia.
== END 2020-06-11 08:37 ==
LOC: ORPAIN 07:21
PROVIDERS: ATTEND Anesthesiology
DX: M47.816 Spondylosis without myelopathy or radiculopathy, lumbar region (principal); I25.10 Atherosclerotic heart disease of native coronary artery without angina pectoris; Z95.5 Presence of coronary angioplasty implant and graft
CPT/HCPCS: 64493; 64494; J3301; J2795

== ENCOUNTER → 2020-07-12 | Outpatient (CLI) | payer MEDICARE ==
[2020-07-12 10:14] VITALS: BP 123/78; PULSE 79; RESP 16; TEMP 95
--- NOTE | 2020-07-12 10:48 | P.PN ---
Subjective Progress Note Date: 07/12/20 Florin is a 74-year-old gentleman who presents today for follow-up after having bilateral lumbar medial branch blocks 2. He reports greater than 90% relief from the diagnostic testing. He reports he still having some relief from the diagnostic testing. He reports his VAS today is 2 out of 10. He found that the injections significantly improve his function. Is able to bend over and stand up from a kneel position which he normally has a lot of trouble with. He denies any significant weakness down his legs. He has chronic numbness in his lower extremity is which she reports is from his knee replacement. The numbness is from the mid renner down to his feet but denies any shooting pain down the leg. He uses occasional NSAIDs for pain. Review of Systems: Denies any New chest pain, short of breath, Nausea/vomitting, abdominal pain, bowel or bladder incontinence, or any overt new neurologic sym ptoms in his upper or lower extremities. Objective - Vital Signs Vital signs: Vital Signs Temp 95.0 F L 07/12/20 10:11 Pulse 79 07/12/20 10:11 Resp 16 07/12/20 10:11 BP 123/78 07/12/20 10:11 Pulse Ox 94 L 07/12/20 10:11 - Exam General: Awake and alert oriented 3 no distress Respiratory exam: No audible wheezing no accessory muscle usage Cardiovascular exam: regular rate, palpable bilateral pulses, no lower extremity edema Abdominal exam: No distention nontender to palpation Cervical spine: Normal alignment, Spurling's negative, facet loading negative, Auricular Acupuncturist strength is 5/5, roman negative Lumbar spine: Loss of lumbar lordosis, normal alignment, tender to palpation over bilateral paraspinal muscles, facet loading is positive bilaterally. Straight leg raise is negative. Limited range of motion due to pain with flexion, extension and side bending. Facet loading is positive bilateral Neuro exam: Normal sensation in bilateral upper extremities, deep tendon reflexes are 2+ bilateral upper extremities. Normal sensation in bilateral lower extremities. Deep tendon reflexes are 2+ in lower extremities (not at the patella and sees had bilateral knee replacement) Psych exam: Cooperative, appropriate mood Assessment and Plan Assessment: #1 lumbar spondylosis without myelopathy Plan: Given johnson robust improvement from the medial branch blocks, I have discussed the radiofrequency ablation in detail with the patient is white. I went over the spine model and What we would be doing as well as the expectations from the procedure. He like to move forward with the procedure. We'll schedule him for bilateral lumbar radiofrequency ablation of the L4 5 and L5-S1 levels. I have spent 21 minutes on patient care today. The time was used to review the medical records including relevant urine studies and Prescription history (MAPs), review of the available imaging, evaluation and examination of the patient, coordination of care with the medical staff and if applicable referring physicians, as well as creation of the medical record.
== END ==
LOC: PNWHC3 09:59
PROVIDERS: ATTEND Hospitalist
DX: M47.816 Spondylosis without myelopathy or radiculopathy, lumbar region (principal); M17.12 Unilateral primary osteoarthritis, left knee; M16.11 Unilateral primary osteoarthritis, right hip
CPT/HCPCS: 99211

== ENCOUNTER 2020-08-20 10:05 | Day surgery (SDC) | payer MEDICARE ==
[2020-08-18 15:24] VITALS: BMI 31.6
[2020-08-20 10:26] VITALS: RESP 16; TEMP 97.1
[2020-08-20] MEDS ORDERED: LIDOCAINE 1% (10MG/ML) FOR IV START INTRADERMA ONE (10:30)
[2020-08-20] MEDS ORDERED: LACTATED RINGERS 1,000 ML IV ONE (10:30)
[2020-08-20] MEDS ORDERED: LIDOCAINE 1% INJ 10MG/ML (20 ML MDV) ONE (10:38)
[2020-08-20] MEDS ORDERED: ROPIVACAINE 5MG/ML 20ML VIAL ONE (10:38)
[2020-08-20] MEDS ORDERED: fentaNYL (PF) 50 MCG/ML 2 ML AMP ONE (10:38)
[2020-08-20] MEDS ORDERED: MIDAZOLAM 2 MG/2 ML VIAL ONE (10:38)
--- NOTE | 2020-08-20 11:17 | P.PCN ---
Date of Procedure: 08/20/20 Description of Procedure: PREOPERATIVE DIAGNOSIS: Lumbar Spondylosis POSTOPERATIVE DIAGNOSIS: Same PROCEDURES: Radiofrequency ablation of the L3, L4, L5 medial branches with fluoroscopic guidance bilaterally SURGEON: Martin Glover MD. ANESTHESIA: Lidocaine 1% 5 mL, Monitored anesthesia care with anesthesia team EBL: Minimal Fluoroscopy was used for the procedure and images were saved in the radiology portion of the chart. PROCEDURE INDICATION: The patient with low back pain secondary to lumbar facet arthropathy who had more than 50% relief of pain with previous diagnostic lumbar medial branch block X2. PROCEDURE DESCRIPTION / TECHNIQUE: The patient was seen and identified in the preoperative area. Risks, benefits, complications, including but not limited to risk of infection ,bleeding , allergic reactions to the medications and incomplete pain relief , and alternatives were discussed with the patient, the patient agreed to proceed with the procedure and signed the consent. IV was started. The operative site was marked. Patient was taken to the OR and time out was completed. The patient was placed in the prone position on the procedure table. The lumbar area was prepped and draped in the usual sterile fashion. . Vital signs were closely monitored during the procedure .IV sedation was used during the procedure to decrease patient's anxiety. Using AP and then oblique fluoroscopy, the "eye of the Amadou dog" corresponding to the connection between the superior and transverse articular processes of the L4 and L5 as well as the sacral ala were identified, marked, and localized with 1% lidocaine. Subsequently, an 18 [id number] cannula with a 10-mm active tip was advanced guided by fluoroscopy to the identified target at each site. Needle positioning was confirmed on AP, oblique and lateral fluoroscopy. Motor testing at 2.5 Hz was done with paraspinal muscle stimulation only, and no radicular symptoms down the legs. Then 1 mL 0.5% ropivacaine was injected in each site. Radiofrequency thermocoagulation at 80 degrees celsius for 90 seconds was then performed. Chinle were removed. Sterile dressings were applied. COMPLICATIONS: No acute complications. DISPOSITION / PLANS: The patient was placed in a supine position and transferred to the recovery area in a stable condition for observation and was discharged from the recovery room after meeting discharge criteria. Home discharge instructions given to the patient by the staff. The patient will follow up in clinic in 4 weeks.
[2020-08-20 11:25] VITALS: PULSE 65
[2020-08-20] MEDS ORDERED: IV FLUID CONTINUATION 1,000 ML IV ONE (11:29)
[2020-08-20 11:54] VITALS: BP 134/81
--- NOTE | 2020-08-20 13:02 | FL ---
Fluoroscopy HISTORY: Pain 36 seconds fluoroscopy time supplied to the referring clinician. 10 intraoperative C-arm images docu ment the procedure. See dictated report from anesthesia.
== END 2020-08-20 12:08 | disposition home or self-care (01) ==
LOC: ORPAIN 10:05
PROVIDERS: ATTEND Anesthesiology
DX: M47.816 Spondylosis without myelopathy or radiculopathy, lumbar region (principal); I25.10 Atherosclerotic heart disease of native coronary artery without angina pectoris; I10 Essential (primary) hypertension; E78.5 Hyperlipidemia, unspecified; J44.9 Chronic obstructive pulmonary disease, unspecified; M19.90 Unspecified osteoarthritis, unspecified site; R25.1 Tremor, unspecified; Z79.899 Other long term (current) drug therapy; Z79.82 Long term (current) use of aspirin
CPT/HCPCS: 64635; 64636; J2250; J2001; J3010; J2795

== ENCOUNTER → 2020-09-20 | Outpatient (CLI) | payer MEDICARE ==
[2020-09-20 09:20] VITALS: BP 178/66; PULSE 70; RESP 18; TEMP 98.5
--- NOTE | 2020-09-20 09:41 | P.PN ---
Subjective Progress Note Date: 09/20/20 This is a follow-up visit for this 74 years old male with a history of severe low back pain, he is diagnosed with lumbar spondylosis with lumbar facet arthropathy with radiculopathy, and lumbar degenerative disc disease and sacroiliitis, status post RFA medial branch block lumbar area, at L3, and L4, L5, Amena reported that he gets more than 70% improvement in his pain, and he was able to do more activity , and he decreased his opioid consumption, Currently patient reported that he had only localized pain in the left hip area, pain in the left hip area increases with any activity especially walking Physical Examinations : -Constitutiona : Cooperative , not in acute distress . -HEENT : nech : supple , no Lymphadenopathy , normal thyroid size . : eyes : no ptosis , no icterus, no photoph obia . - neurologic : Cranial nerve II to XII intact , no focal neurological deffecit . -psychatric : alert , oriented X 3 , appropriate affect , intact judgment and insight . -Lymphatic : no Lymphadenopathy . - musculoskeltal : Lumber spine moter stegnth lower extremities ,thigh and legs 5/5 Right side , 5/5 Left side deep tendon reflexes : normal Knee Jerk , normal ankle Jerk lumber facet Loading Test =positive Right , positive Left Range of motion of the lumbar spine Flexion 60 degrees, extension 30 degrees strait leg raising test = negative bilaterally Fabere test= negative bilaterally . Sever tenderness over the left trochanteric bursa Assessment and Plan Plan: Assessment and plan=1-lumbar spondylosis with lumbar facet arthropathy 2-Lumbar degenerative disc disease. 3-sacroiliitis. 4-left trochanteric bursitis Patient had excellent pain relief after the RFA medial branch Lumbar area. A shunt could benefit from left trochanteric bursa steroid injections under fluoroscopy guidance - PQRS measures = - Patient's medications are documented in the chart. -Tobacco use is negative and counseling.Given. -Patient's has not received pneumococcal vaccine. -Advanced care planning discussed, patient not eligible. -Opiate contract not signed. -Pain positive and follow-up visit/procedure is scheduled. -Patient's blood pressure measured [ 178/66 ] , and documented in the record ,and patient will follow up with the primary care. -Patient's weight was measured and body mass index [ 31.7 ] above the normal limits and counseling was done. and patient instructed to follow-up with the primary care physician. -Patient was not identified as an unhealthy alcohol user Objective - Vital Signs Vital signs: Vital Signs Temp 98.5 F 09/20/20 09:15 Pulse 70 09/20/20 09:15 Resp 18 09/20/20 09:15 BP 178/66 09/20/20 09:15 Pulse Ox 95 09/20/20 09:15
== END ==
LOC: PNWHC3 09:04
PROVIDERS: ATTEND Specialist
DX: M47.816 Spondylosis without myelopathy or radiculopathy, lumbar region (principal); M51.36 Other intervertebral disc degeneration, lumbar region; M46.1 Sacroiliitis, not elsewhere classified; M70.62 Trochanteric bursitis, left hip
CPT/HCPCS: 99211

== ENCOUNTER → 2020-09-22 | Outpatient (CLI) | payer MEDICARE ==
[2020-09-22 12:30] LABS: African American GFR (CKD) >90 (>60 ml/min/1.73 sqM); Blood Urea Nitrogen 14 mg/dL (9-20); Non-African American GFR(CKD) >90 (>60 ml/min/1.73 sqM)
--- NOTE | 2020-09-22 13:15 | CT ---
EXAMINATION TYPE: CT ChestAbdPelvis w con DATE OF EXAM: 09/22/2020 COMPARISON: 05/21/2018 HISTORY: Waldenstrom macroglobulinemia. CT DLP: 1884.9 mGycm CONTRAST: CT scan of the chest, abdomen and pelvis is performed with Oral Contrast and with IV Contrast, patien t injected with 100 mL of Isovue M300. CT Chest: LUNGS: The lungs are clear and free of infiltrate or atelectasis. No pulmonary nodule or mass is det ected. No pleural effusion or CT evidence of interstitial lung disease. MEDIASTINUM: Thoracic aorta is of normal caliber. The heart is not enlarged. No evidence for media stinal mass or adenopathy. HILAR STRUCTURES: No evidence for mass. No hilar adenopathy is appreciated. OTHER: No significant abnormality. CONTRAST CT ABDOMEN AND PELVIS FINDINGS: LIVER/GB: Mild hepatic steatosis seen. Small gallstones identified in the region of the gallbladder n selina. Subcentimeter hepatic cyst left hepatic lobe medial segment as well as the lateral segment. Bili neel tree is of normal caliber. PANCREAS: No inflammation. No distinct mass. SPLEEN: No splenic enlargement. No lesion seen. ADRENALS: No nodule. No thickening. KIDNEYS/BLADDER: No hydronephrosis. No nephrolithiasis. Simple cyst upper left kidney. No solid atilio al lesions identified. Additional 1 cm cyst lower pole right kidney. BOWEL: Normal appendix. Normal bowel caliber. No inflammation. GENITAL ORGANS: No gross abnormality. LYMPH NODES: No greater than 1cm abdominal or pelvic lymph nodes are appreciated. AORTA: No significant abnormality. OSSEOUS STRUCTURES: Degenerative changes lumbar spine. OTHER: No significant additional abnormality is seen. IMPRESSION: 1. Mild hepatic steatosis. 2. Small hepatic and renal cysts.
== END | disposition home or self-care (01) ==
LOC: RADCTMAIN 11:07
PROVIDERS: ATTEND Internal Medicine Hematology & Oncology
DX: K76.0 Fatty (change of) liver, not elsewhere classified (principal); K76.89 Other specified diseases of liver; N28.1 Cyst of kidney, acquired
CPT/HCPCS: 82565; 84520; 71260; 74177; 36415; Q9967 ×2

== ENCOUNTER → 2020-10-25 | Outpatient (CLI) | payer MEDICARE ==
--- NOTE | 2020-10-25 09:36 | XR ---
EXAMINATION TYPE: XR Hip Complete LT DATE OF EXAM: 10/25/2020 COMPARISON: NONE HISTORY: Pain TECHNIQUE: 2 views submitted FINDINGS: There is no evidence of erosive change or acute fracture. There is mild hypertrophic spurring along the margins of the femoral head. Mild concentric narrowing of the joint space. Mild hypertrophic change of the acetabulum. IMPRESSION: 1. Mild arthropathy. Correlate for femoral acetabular impingement.
== END | disposition home or self-care (01) ==
LOC: RADXRMAIN 09:15
PROVIDERS: ATTEND Internal Medicine
DX: M25.552 Pain in left hip (principal); M12.9 Arthropathy, unspecified
CPT/HCPCS: 73502

== ENCOUNTER 2020-10-26 09:28 | Day surgery (SDC) | payer MEDICARE ==
[2020-10-22 11:15] VITALS: BMI 32.1
[2020-10-26 09:43] VITALS: TEMP 97
[2020-10-26] MEDS ORDERED: LACTATED RINGERS 1,000 ML IV ONE (09:46)
[2020-10-26] MEDS ORDERED: ROPIVACAINE 5MG/ML 20ML VIAL ONE (09:53)
[2020-10-26] MEDS ORDERED: methylPREDNISolone ACETATE 40 MG/ML 1 ML VIAL ONE (09:53)
[2020-10-26] MEDS ORDERED: fentaNYL (PF) 50 MCG/ML 2 ML AMP ONE (09:53)
[2020-10-26] MEDS ORDERED: MIDAZOLAM 2 MG/2 ML VIAL ONE (09:53)
--- NOTE | 2020-10-26 10:05 | P.PCN ---
Date of Procedure: 10/26/20 Procedure(s) Performed: Pre OP diagnoses= Left trochanteric bursitis . Postoperative diagnosis= Left trochanteric bursitis. Operation= left trochanteric bursa steroid injection under fluoroscopy guidance.(The fluoroscopy images on file in Radiology department ) Anesthesia= moderate sedation with IV , Versed 2 mg and fentanyl 50 micrograms and local infiltration with Ropivacaine 1% 2 mL . Complications= none . Description of the procedure= patient had history of severe low back pain and h ip pain secondary to left trochanteric bursitis for this reason, patient was a good candidate to have left trochanteric bursa steroid injection which hopefully it will help his pain, risks and benefits of the procedure including but not limited to risk of infection and bleeding and not complete pain relief and ALLERGIC reaction to medication discussed with the patient and the alternative also discussed with the patient and he agreed with the preceding taken to the operating room placed in prone position or standard monitors applied patient and after induction of anesthesia the back and the hip area prepped with chlorhexidine 3 times, and under sterile technique using 25-gauge needle for skin and subcutaneous tissue infiltration was first admitted the right trochanteric bursa injection at 22-gauge Quincke-type spinal needle advanced slowly under fluoroscopy and placed in the left trochanteric bursa needle placement confirmed with AP and lateral view and after appropriate needle placement confirmed under fluoroscopy 5 ML of Ropivacaine 0.5% mixed with 40 mg of Depo-medrol injected after negative aspiration for heme and there was no CSF and there was no paresthesia during the injection and needle removed and a dressing applied , patient tolerated the procedure well without any complication and she will follow up with the pain clinic in a few weeks and patient discharged home in stable condition
[2020-10-26 10:12] VITALS: BP 138/88; PULSE 74; RESP 16
[2020-10-26] MEDS ORDERED: IV FLUID CONTINUATION 700 ML IV ONE (10:22)
--- NOTE | 2020-10-26 17:19 | FL ---
Fluoroscopy HISTORY: Pain 1 seconds fluoroscopy time supplied to the referring clinician. 1 intraoperative C-arm images docume nt the procedure. See dictated report from anesthesia.
== END 2020-10-26 10:38 | disposition home or self-care (01) ==
LOC: ORPAIN 09:28
PROVIDERS: ATTEND Specialist
DX: M70.62 Trochanteric bursitis, left hip (principal)
CPT/HCPCS: 20610; 76000; J2250; J1030; J3010; J2795

== ENCOUNTER → 2020-11-17 | Outpatient (CLI) | payer MEDICARE ==
[2020-11-17 09:09] VITALS: BP 150/103; PULSE 76; RESP 18; TEMP 98
--- NOTE | 2020-11-17 09:38 | P.PN ---
Subjective Progress Note Date: 11/17/20 This is a follow-up visit for this 74 years old male with a history of severe low back pain, he is diagnosed with lumbar spondylosis with lumbar facet arthropathy with radiculopathy, and lumbar degenerative disc disease and left trochanteric bursitis, recently with the left trochanteric bursa steroid inj ection he reports that his pain improved significantly, he denies any motor or sensory deficit Amena reported that he gets more than 70% improvement in his pain, and he was able to do more activity , and he decreased his opioid consumption, Physical Examinations : -Constitutiona : Cooperative , not in acute distress . -HEENT : nech : supple , no Lymphadenopathy , normal thyroid size . : eyes : no ptosis , no icterus, no photophobia . - neurologic : Cranial nerve II to XII intact , no focal neurological deffecit . -psychatric : alert , oriented X 3 , appropriate affect , intact judgment and insight . -Lymphatic : no Lymphadenopathy . - musculoskeltal : Lumber spine moter stegnth lower extremities ,thigh and legs 5/5 Right side , 5/5 Left side Assessment and Plan Plan: Assessment and plan=1-lumbar spondylosis with lumbar facet arthropathy 2-Lumbar degenerative disc disease. 3-sacroiliitis. 4-left trochanteric bursitis Patient had excellent pain relief after the RFA medial branch Lumbar area. Pain improved after left trochanteric bursa steroid injections , patient currently had minimal pain he could benefit from Voltaren gel 1% to be applied to the left hip area twice daily when necessary And he will follow up in the pain clinic when necessary - PQRS measures = - Patient's medications are documented in the chart. -Tobacco use is negative and counseling.Given. -Patient's has not received pneumococcal vaccine. -Advanced care planning discussed, patient not eligible. -Opiate contract not signed. -Pain positive and follow-up visit/procedure is scheduled. -Patient's blood pressure measured [ 150/103] , and documented in the record ,and patient will follow up with the primary care. -Patient's weight was measured and body mass index [ 31.7 ] above the normal limits and counseling was done. and patient instructed to follow-up with the primary care physician. -Patient was not identified as an unhealthy alcohol user Objective - Vital Signs Vital signs: Vital Signs Temp 98.0 F 11/17/20 09:05 Pulse 76 11/17/20 09:05 Resp 18 11/17/20 09:05 BP 150/103 11/17/20 09:05 Pulse Ox 96 11/17/20 09:05
== END ==
LOC: PNWHC3 09:01
PROVIDERS: ATTEND Specialist
DX: M47.816 Spondylosis without myelopathy or radiculopathy, lumbar region (principal); M51.36 Other intervertebral disc degeneration, lumbar region; M46.1 Sacroiliitis, not elsewhere classified; M70.62 Trochanteric bursitis, left hip
CPT/HCPCS: 99211

== ENCOUNTER → 2021-05-09 | Outpatient (CLI) | payer MEDICARE ==
--- NOTE | 2021-05-09 14:31 | US ---
EXAMINATION TYPE: US carotid duplex BILAT DATE OF EXAM: 05/09/2021 COMPARISON: NONE CLINICAL HISTORY: I65.23 occlusion and stenosis of carotid. Stenosis per order. Pt experiences dizzin ess. Hx hypertension, hyperlipidemia. EXAM MEASUREMENTS: RIGHT: Peak Systolic Velocity (PSV) cm/sec ----- Right CCA: 95.2 ----- Right ICA: 81.4 ----- Right ECA: 144.7 ICA/CCA ratio: 0.9 RIGHT: End Diastole cm/sec ----- Right CCA: 19.3 ----- Right ICA: 22.9 ----- Right ECA: 17.1 LEFT: Peak Systolic Velocity (PSV) cm/sec ----- Left CCA: 84.0 ----- Left ICA: 82.3 ----- Left ECA: 103.6 ICA/CCA ratio: 1.0 LEFT: End Diastole cm/sec ----- Left CCA: 16.0 ----- Left ICA: 28.2 ----- Left ECA: 11.3 VERTEBRALS (direction of flow): Right Vertebral: Antegrade Left Vertebral: Antegrade Rhythm: Normal Intimal thickening seen bilaterally. Plaque seen within right bulb, prox right ICA and ECA, left bulb , and left ICA. Elevated velocity within right ECA. Incidental finding: Complex area with echogenic component seen within the right thyroid lobe: 1.4 x 1 .3 x 0.9 cm. IMPRESSION: 1. Bilateral atheromatous plaquing. Significant flow-limiting stenosis is not evident by velocity jailene surements. 2. Consider follow-up MRI for neurologic symptoms. Criteria for Assigning % of Stenosis / Diameter reduction (Estimation based on the indirect measurements of the internal carotid artery velocities (ICA PSV). 1. Normal (no stenosis)=ICA PSV < 125 cm/s: ratio < 2.0: ICA EDV<40 cm/s. 2. Less than 50% stenosis=ICA PSV < 125 cm/s: ratio < 2.0: ICA EDV<40 cm/s. 3. 50 to 69% stenosis=ICA PSV of 125 to 230 cm/s: ration 2.0 ? 4.0: ICA EDV 40-100 cm/s. 4. Greater than 70% stenosis to near occlusion= ICA PSV > 230 cm/s: ratio > 4.0: ICA EDV > 100 cm/s. 5. Near occlusion= ICA PSV velocities may be low or undetectable: variable ratio and ICA EDV. 6. Total occlusion=unable to detect flow.
== END | disposition home or self-care (01) ==
LOC: RADUSWWP 13:41
PROVIDERS: ATTEND Internal Medicine
DX: I65.23 Occlusion and stenosis of bilateral carotid arteries (principal)
CPT/HCPCS: 93880

== ENCOUNTER → 2021-05-09 | Outpatient (CLI) | payer MEDICARE ==
--- NOTE | 2021-05-10 05:31 | MR ---
EXAMINATION TYPE: MR cervical spine wo con DATE OF EXAM: 05/09/2021 COMPARISON: None HISTORY: Neck pain that radiates down both arms for 1 month. Multiplanar multiecho imaging of the cervical spine without contrast. FINDINGS: The cervical vertebra have normal alignment. Disc spaces are fairly normal. There is no compression f racture. There is no cervical disc herniation. There is developmentally adequate spinal canal. No spi nal stenosis. Cervical spinal cord has normal signal pattern. There is no edema. There is no cervical paraspinal mass. Posterior elements are intact. There is multilevel mild cervica l facet arthropathy. IMPRESSION: Negative MRI scan of the cervical spine. No cervical disc herniation or spinal stenosis. Minor hypert rophic facet arthropathy.
== END | disposition home or self-care (01) ==
LOC: RADMRIMAIN 16:44
PROVIDERS: ATTEND Physician Assistant
DX: M47.12 Other spondylosis with myelopathy, cervical region (principal); M47.22 Other spondylosis with radiculopathy, cervical region
CPT/HCPCS: 72141

== ENCOUNTER → 2021-06-13 | Outpatient (CLI) | payer MEDICARE ==
--- NOTE | 2021-06-13 19:14 | US ---
EXAMINATION TYPE: US thyroid st tissue head/neck DATE OF EXAM: 06/13/2021 COMPARISON: Carotid ultrasound 05/09/2021 CLINICAL HISTORY: 75-year-old male E04.1 THYROID NODULE. Nodule seen on recent carotid US TECHNIQUE: Multiple sonographic images of the thyroid gland are obtained. FINDINGS: GLAND SIZE: Right Lobe: 4.8 x 1.3 x 1.9 cm Overall Parenchyma: heterogenous Left Lobe: 4.7 x 1.4 x 1.8 cm Overall Parenchyma: heterogeneous Isthmus Thickness: 0.4 cm NODULES RIGHT: # of nodules measured on right: 2, measured largest 1. 0.9 X 1.0 x 1.0 cm, mid, cystic or almost completely cystic, anechoic nodule, which is wider tamika n tall, with smooth margins, with echogenic foci. Findings most suggestive of a colloid cyst. Previou sly having measured 1.4 cm. 2. A second benign, 7 mm colloid cyst is located just above in the mid pole. LEFT: # of nodules measured on left: 2, measured largest 1. 0.9 X 0.7 x 0.4 cm, upper, mildly lobulated rcystic or almost completely cystic, anechoic nodule , which is wider than tall, with smooth margins, without echogenic foci. 2. A second tiny 4 mm colloid cyst is located within the anterior midpole. ISTHMUS: # of nodules measured in the isthmus: 0 Bilateral neck scanned, no evidence of lymphadenopathy. 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 0 cm. This is the questioned complex nodule seen on carotid ultrasound previously having measured lar julius at 1.4 cm. No suspicious nodules seen.
== END | disposition home or self-care (01) ==
LOC: RADUSWWP 15:04
PROVIDERS: ATTEND Internal Medicine
DX: E04.1 Nontoxic single thyroid nodule (principal)
CPT/HCPCS: 76536

== ENCOUNTER → 2021-07-07 | Outpatient (CLI) | payer MEDICARE ==
[2021-07-07 10:21] VITALS: BP 126/76; PULSE 77; RESP 18
--- NOTE | 2021-07-07 11:02 | P.PN ---
Subjective Progress Note Date: 07/07/21 Principal diagnosis: A 75 yr old male with at side with a history of severe and chronic BL hip pain secondary to osteoarthritis presents today for evaluation. Pain level is currently at 4 out of 10 in intensity, dull, achy in the hips bilaterally, right greater than left with occasional radiation of pain of the right hip to the groin. The pain escalates as high as 9 out of 10 with cold weather and lifting. Patient had success with a previous trochanteric joint injection of approximately 80% pain relief in October 2020. Pain is relieved with medications, topicals, heat, resting, injections and repositioning. Pain is dull/ achy/ sharp/ shooting towards . Pain is provoked by . Pain is alleviated with . Interventional pain procedures completed include L trochanteric joint injection Patient is currently on Ibuprofen, Tramadol Patient denies any side effects of the medication(s), denies excessive drowsiness or sleepiness, denies suicidal ideation and reports that the current pain medication is helping to control the pain and improve activities of daily living. Patient denies any motor or sensory deficits. Patient denies any fever or night sweats, denies any change in the bowel movements or urination. Physical Examination: -Constitutional: Cooperative. Not in acute distress . -HEENT: Neck is supple. No lymphadenopathy. No thyromegaly. Normal thyroid size. Eyes: No ptosis , no icterus, no photophobia. ENT: No auditory deficits. Normal oropharynx. No Thrush. - Respiratory: Chest clear to auscultations bilaterally. No wheezing. No rhonchi. - Cardiovascular: Regular rate and rhythm. S1 / S2 , no S3 , no S4. - Gastrointestinal: Abdomen soft no tenderness. Bowel sounds positive in all four quadrants. No organomegaly. - Genitourinary: Deferred. - Neurologic: Cranial nerve II to XII intact. No focal neurological deficits. - Psychatric: Alert & oriented x 3. Matching mood & appropriate affect. Judgment and insight intact. - Lymphatic: No Lymphadenopathy. - Musculoskeletal: Cervical spine: Muscle bulk/ tone/ strength in the bilateral upper extremities normal. Facet loading test cervical area positive. Lumbar spine: Motor bulk/ tone/ strength lower extremities , thigh and legs : 5/5 Deep tendon reflexes : Normal Knee Jerk. Normal Ankle Jerk . Vertebral body tenderness to palpation over Lumbar Facet Loading Test positive Straight Leg Raise: positive at 30 degrees right side/ left side Gaenslen's Test positive Seated flexion positive Sacral spine : Severe tenderness over the Sacroiliac joint: right side / left side Range of motion: Flexion of the lumbar spine <60 degrees Range of motion: Extension of the lumbar spine <20 degrees Gaenslen's Test positive Tod test: positive right side / left side Assessment and plan: Chronic BL hip pain secondary to osteoarthritis Recommendation of bilateral trochanteric joint injections. May need a series, up to 3 with a 6 month period, for optimal pain relief. Risks, benefits of procedure discussed and patient verbalized understanding. Denies anticoagulant use or medical history of diabetes. All patient questions answered MAPS reviewed and it was appropriate. I have spent 31 minutes on patient care today. Dr Atkins was available by phone for the evaluation of this patient. The time was used to review the medical records including relevant urine studies and Prescription history (MAPs), review of the available imaging, evaluation and examination of the patient, coordination of care with the medical staff and if applicable referring physicians, as well as creation of the medical record Objective - Vital Signs Vital signs: Vital Signs Temp Pulse 77 07/07/21 10:09 Resp 18 07/07/21 10:09 BP 126/76 07/07/21 10:09 Pulse Ox 94 L 07/07/21 10:09 Intake & Output 07/06/21 07/07/21 07/07/21 18:59 06:59 18:59 Weight 113.398 kg PQRS Measure Charge Sheet Mode of Arrival: Ambulatory - Pain Location Left Hip Non-Pharmacological Interventions: Heat, Position/Reposition, Sitting Pharmacological Interventions: PRN Medication, Scheduled Medication, Topical Medication PQRS Narrative: Smoking Status Never smoker Blood Pressure 126/76 Pain Intensity [Left Hip] 4 Scale Used Numeric (1 - 10) Hx Alcohol Use (MH) Yes: RARE Home Medications: Ambulatory Orders Magnesium Gluconate [Magonate] 500 mg PO HS 11/15/15 Aspirin [Adult Low Dose Aspirin EC] 81 mg PO DAILY 04/26/17 Albuterol Nebulized [Ventolin Nebulized] 2.5 mg INHALATION Q6H PRN 04/15/20 Atorvastatin [Lipitor] 20 mg PO DAILY 04/15/20 Budesonide-Formot 160-4.5 Mcg [Symbicort 160-4.5 Mcg Inhaler] 2 puff INHALATION BID PRN 04/15/20 Celecoxib [CeleBREX] 200 mg PO DAILY 04/15/20 Furosemide [Lasix] 40 mg PO DAILY PRN 04/15/20 Hydrochlorothiazide [hydroCHLOROthiazide] 12.5 mg PO HS 04/15/20 Ipratropium [place] 0.06%Nasal [Atrovent Nasal 0.06%] 1 spr EA NOSTRIL TID PRN 04/15/20 Losartan Potassium [Cozaar] 50 mg PO HS 04/15/20 Omeprazole 20 mg PO HS 04/15/20 Ubidecarenone [Co Q-10] 100 mg PO BID 04/15/20 traMADol HCL [Ultram] 50 mg PO Q6HR PRN 04/15/20 Primidone [Mysoline] 25 mg PO BID 06/10/20
== END ==
LOC: PNWHC3 09:30
PROVIDERS: ATTEND Specialist
DX: M16.0 Bilateral primary osteoarthritis of hip (principal); G89.29 Other chronic pain
CPT/HCPCS: 99211

== ENCOUNTER → 2021-08-01 | Outpatient (CLI) | payer MEDICARE ==
[2021-08-01 14:30] LABS: Appearance,BF Bloody; Color,BF Red
[2021-08-01 20:04] LABS: Mononuclear WBC,Body Fluid 14 %; Nucleated Cells, Body Fluid 2000 /uL; Polynuclear WBC,Body Fluid 82 %; RBC, Body Fluid 1571000 /uL; Total Cells Counted,Body Fluid 100
== END | disposition home or self-care (01) ==
LOC: LABWHC1 12:14
PROVIDERS: ATTEND Orthopaedic Surgery
DX: Z96.653 Presence of artificial knee joint, bilateral (principal); T84.84XA Pain due to internal orthopedic prosthetic devices, implants and grafts, initial encounter; Y82.9 Unspecified medical devices associated with adverse incidents
CPT/HCPCS: 36415; 85379; 85652; 86140; 87070; 87075; 87205; 89050

== ENCOUNTER 2021-08-16 09:42 | Day surgery (SDC) | payer MEDICARE ==
[2021-08-16 10:07] LABS: Glucose,Whole Blood 111 mg/dL (75-99)
[2021-08-16 10:18] VITALS: TEMP 97.9
[2021-08-16] MEDS ORDERED: LACTATED RINGERS 1,000 ML IV ONE ×3 (10:22→11:09)
[2021-08-16] MEDS ORDERED: LIDOCAINE 1% (10MG/ML) FOR IV START INTRADERMA ONE (10:23)
[2021-08-16] MEDS ORDERED: MIDAZOLAM 2 MG/2 ML VIAL ONE (10:45)
[2021-08-16] MEDS ORDERED: fentaNYL (PF) 50 MCG/ML 2 ML AMP ONE (10:45)
[2021-08-16] MEDS ORDERED: ROPIVACAINE 5MG/ML 20ML VIAL ONE (10:45)
[2021-08-16] MEDS ORDERED: methylPREDNISolone ACETATE 40 MG/ML 1 ML VIAL ONE (10:45)
[2021-08-16] MEDS ORDERED: LACTATED RINGERS 1,000 ML IV SCH (11:05)
[2021-08-16] MEDS ORDERED: LIDOCAINE 1% (10MG/ML) FOR IV START INTRADERMA PRN (11:05)
--- NOTE | 2021-08-16 11:08 | P.PCN ---
Date of Procedure: 08/16/21 Procedure(s) Performed: Pre OP diagnoses= 1-Bilateral trochanteric bursitis . 2-lumbar spondylosis with lumbar facet arthropathy. 3-lumbar degenerative disc disease Postoperative diagnosis= same as preop diagnosis Operation= Bilateral trochanteric bursa steroid injection under fluoroscopy guidance.(The fluoroscopy images on file in Radiology department ) Anesthesia= moderate sedation with IV , Versed 2 mg and fentanyl 100 micrograms and local infiltration with Ropivacaine 1% 2 mL . Complications= none . Description of the procedure= patient had history of severe low back pain and hip pain secondary to left trochanteric bursitis for this reason, patient was a good candidate to have left trochanteric bursa steroid injection which hopefully it will help his pain, risks and benefits of the procedure including but not limited to risk of infection and bleeding and not complete pain relief and ALLERGIC reaction to medication discussed with the patient and the alternative also discussed with the patient and he agreed with the preceding taken to the operating room placed in prone position or standard monitors applied patient and after induction of anesthesia the back and the hip area prepped with chlorhexidine 3 times, and under sterile technique using 25-gauge needle for skin and subcutaneous tissue infiltration was first admitted the right trochanteric bursa injection at 22-gauge Quincke-type spinal needle advanced slowly under fluoroscopy and placed in the left trochanteric bursa needle placement confirmed with AP and lateral view and after appropriate needle placement confirmed under fluoroscopy 5 ML of Ropivacaine 0.5% mixed with 40 mg of Depo-medrol injected after negative aspiration for heme and there was no CSF and there was no paresthesia during the injection and needle removed and then the exact same procedure was repeated for the Right trochanteric bursa and identified the right trochanteric bursa steroid injection also, patient tolerated the procedure well without any complication and she will follow up with the pain clinic in a few weeks and patient discharged home in stable condition
[2021-08-16 11:49] VITALS: BP 119/69; PULSE 65; RESP 18
[2021-08-16] MEDS ORDERED: IV FLUID CONTINUATION 800 ML IV ONE (11:58)
--- NOTE | 2021-08-16 12:11 | FL ---
Fluoroscopy HISTORY: Pain 2 seconds fluoroscopy time supplied to the referring clinician. 2 intraoperative C-arm images docume nt the procedure. See dictated report from anesthesia.
== END 2021-08-16 12:07 | disposition home or self-care (01) ==
LOC: ORPAIN 09:42
PROVIDERS: ATTEND Specialist
DX: M70.62 Trochanteric bursitis, left hip (principal); M70.61 Trochanteric bursitis, right hip; M51.36 Other intervertebral disc degeneration, lumbar region; M47.816 Spondylosis without myelopathy or radiculopathy, lumbar region; Z79.82 Long term (current) use of aspirin; Z79.899 Other long term (current) drug therapy; Z79.51 Long term (current) use of inhaled steroids
CPT/HCPCS: 20610; J2250; J1030; J3010; J2795; 99152

== ENCOUNTER → 2021-08-17 | Outpatient (CLI) | payer MEDICARE ==
--- NOTE | 2021-08-17 14:43 | NM ---
EXAMINATION TYPE: NM bone 3 phase DATE OF EXAM: 08/17/2021 COMPARISON: Plain film 05/07/2017, 3 05/25/2014 HISTORY: T84.84XD Triple phase bone scintigraphy was performed following the injection of 22.6 mCi Tc 99m MDP. Immedia te images and 5 hours post injection images acquired at the level of the knees. Delayed whole-body sc anning was performed. FINDINGS: Bilateral knee arthroplasties have been performed. Photopenic areas are present at the bila teral knees. Mild increased uptake is present along the proximal tibias bilaterally. Photopenic area within the ri ght knee likely corresponds to stem of patient's arthroplasty. Uptake within the feet, ankles, shoulders and sternoclavicular joints is likely degenerative. Soft ti ssue uptake is within normal limits. Photopenic area in the right hip consistent with prior hip arthr oplasty. Spinal curvature is noted incidentally. Uptake within the spine is likely degenerative. IMPRESSION: Findings may be due to stress changes within the knees. Underlying arthropathy changes suspected.
== END | disposition home or self-care (01) ==
LOC: RADNMMAIN 07:33
PROVIDERS: ATTEND Orthopaedic Surgery
DX: T84.84XD Pain due to internal orthopedic prosthetic devices, implants and grafts, subsequent encounter (principal); Y79.2 Prosthetic and other implants, materials and accessory orthopedic devices associated with adverse incidents
CPT/HCPCS: 78315; A9503

== ENCOUNTER → 2021-08-29 | Outpatient (CLI) | payer MEDICARE ==
[2021-08-29 09:41] VITALS: BP 110/65; PULSE 84; RESP 18; TEMP 98
--- NOTE | 2021-08-29 09:52 | P.PAINPG ---
Objective - Vital Signs Vital signs: Vital Signs Temp 98 F 08/29/21 09:36 Pulse 84 08/29/21 09:36 Resp 18 08/29/21 09:36 BP 110/65 08/29/21 09:36 Pulse Ox 95 08/29/21 09:36 FiO2 PQRS Measure Charge Sheet Mode of Arrival: Ambulatory Comment: A 75 yr old male with at side with a history of severe and chronic low back pain secondary to lumbar degenerative disc diseases and lumbar spondylosis with facet arthropathy presents today for evaluation status post BL hip bursa injections. He states he experienced 80% pain relief for 2 weeks status post procedure. Pain level is currently at 8 out of 10 in intensity, throbbing, aching in the right hip and right knee region with shooting pain to the right lower extremity. Patient also states he limps with weightbearing activity due to pain. Pain is alleviated with dictations, topicals, injections, heat, home exercise and stretching regimen, repositioning and rest. I reviewed bone scan results with patient that we will need an MRI for right genicular nerve block. He has had R knee replacement x 2 as well as arthrocenteses. Interventional pain procedures completed include BL hip bursa injection 1 Patient is currently on [place] 5/325 from [facility]. Patient denies any side effects of the medication(s), denies excessive drowsiness or sleepiness, denies suicidal ideation and reports that the current pain medication is helping to control the pain and improve activities of daily living. Patient denies any motor or sensory deficits. Patient denies any fever or night sweats, denies any change in the bowel movements or urination. Physical Examination: -Constitutional: Cooperative. Not in acute distress . -HEENT: Neck is supple. No lymphadenopathy. No thyromegaly. Normal thyroid size. Eyes: No ptosis , no icterus, no photophobia. ENT: No auditory deficits. Normal oropharynx. No Thrush. - Respiratory: Chest clear to auscultations bilaterally. No wheezing. No rhonchi. - Cardiovascular: Regular rate and rhythm. S1 / S2 , no S3 , no S4. - Gastrointestinal: Abdomen soft no tenderness. Bowel sounds positive in all four quadrants. No organomegaly. - Genitourinary: Deferred. - Neurologic: Cranial nerve II to XII intact. No focal neurological deficits. - Psychatric: Alert & oriented x 3. Matching mood & appropriate affect. Judgment and insight intact. - Lymphatic: No Lymphadenopathy. - Musculoskeletal: Cervical spine: Muscle bulk/ tone/ strength in the bilateral upper extremities normal Vertebral body tenderness to palpation over Facet loading test positive Thoracic spine Muscle bulk / tone/ strength in the bilateral paraspinal muscles normal Vertebral body tender to palpation over Facet loading test positive Lumbar spine: Motor bulk/ tone/ strength lower extremities , thigh and legs : 5/5 Deep tendon reflexes : Normal Knee Jerk. Normal Ankle Jerk . Vertebral body tenderness to palpation over Lumbar Facet Loading Test positive Straight Leg Raise: positive at 30 degrees right side/ left side Gaenslen's Test positive Sacral spine : Severe tenderness over the Sacroiliac joint: right side / left side Range of motion: Flexion of the lumbar spine <60 degrees Range of motion: Extension of the lumbar spine <20 degrees Gaenslen's Test positive Vasyl's Test positive Tod test: positive right side / left side Thigh Thrust Test Sacral Thrust Test R Knee: Diffuse R knee tenderness to palpation, +bennett patellar non pitting edema, limited ROM due to pain, well healed 6" vertical incisional scar Assessment and plan: Chronic R knee pain, weakness, instability secondary to genicular nerve dysfunction, advanced OA Recommendation of MRI without contrast of the right knee Re: M17.9 Would benefit from R genicular nerve block. All patient questions answered MAPS reviewed and it was appropriate. I have spent 31 minutes on patient care today. Dr Atkins was available by phone for the evaluation of this patient. The time was used to review the medical records including relevant urine studies and Prescription history (MAPs), review of the available imaging, evaluation and examination of the patient, coordination of care with the medical staff and if applicable referring physicians, as well as creation of the medical record - Pain Location Lower Back Non-Pharmacological Interventions: Heat, Home Exercise, Inactivity, Position/Reposition, Stretching Pharmacological Interventions: PRN Medication, Topical Medication PQRS Narrative: Smoking Status Never smoker Blood Pressure 110/65 Pain Intensity [Lower Back] 3 Pain Intensity [Bilateral Hip] 4 Scale Used Numeric (1 - 10) Hx Alcohol Use (MH) Yes: RARE Home Medications: Ambulatory Orders Magnesium Gluconate [Magonate] 500 mg PO HS 11/15/15 Aspirin [Adult Low Dose Aspirin EC] 81 mg PO DAILY 04/26/17 Albuterol Nebulized [Ventolin Nebulized] 2.5 mg INHALATION Q6H PRN 04/15/20 Atorvastatin [Lipitor] 20 mg PO DAILY 04/15/20 Budesonide-Formot 160-4.5 Mcg [Symbicort 160-4.5 Mcg Inhaler] 2 puff INHALATION BID PRN 04/15/20 Celecoxib [CeleBREX] 200 mg PO DAILY 04/15/20 Furosemide [Lasix] 40 mg PO DAILY PRN 04/15/20 Hydrochlorothiazide [hydroCHLOROthiazide] 12.5 mg PO HS 04/15/20 Ipratropium [place] 0.06%Nasal [Atrovent Nasal 0.06%] 1 spr EA NOSTRIL TID PRN 04/15/20 Losartan Potassium [Cozaar] 50 mg PO HS 04/15/20 Omeprazole 20 mg PO HS 04/15/20 Ubidecarenone [Co Q-10] 100 mg PO BID 04/15/20 Primidone [Mysoline] 12.5 mg PO BID 06/10/20 HYDROcodone/APAP 5-325MG [[place] 5-325] 1 tab PO Q6HR PRN 08/26/21 Controlled Substance Measures - Controlled Substance Measures Is patient prescribed a controlled substance at discharge?: No
== END ==
LOC: PNWHC3 09:18
PROVIDERS: ATTEND Specialist
DX: M70.71 Other bursitis of hip, right hip (principal); M70.72 Other bursitis of hip, left hip; M17.11 Unilateral primary osteoarthritis, right knee; G89.29 Other chronic pain; M51.36 Other intervertebral disc degeneration, lumbar region; R29.898 Other symptoms and signs involving the musculoskeletal system
CPT/HCPCS: 99211

== ENCOUNTER → 2021-11-16 | Outpatient (CLI) | payer MEDICARE ==
[2021-11-16 11:19] VITALS: BP 145/80; PULSE 100; RESP 16; TEMP 97.8
--- NOTE | 2021-11-16 15:03 | P.PAINPG ---
Objective - Vital Signs Vital signs: Vital Signs Temp 97.8 F 11/16/21 11:16 Pulse 100 11/16/21 11:16 Resp 16 11/16/21 11:16 BP 145/80 11/16/21 11:16 Pulse Ox 94 L 11/16/21 11:16 FiO2 Intake & Output 11/15/21 11/16/21 11/16/21 18:59 06:59 18:59 Weight 114.305 kg PQRS Measure Charge Sheet Mode of Arrival: Ambulatory Comment: A 75 yr old male with a history of severe and chronic low back pain secondary to lumbar degenerative disc diseases and lumbar spondylosis with facet arthropathy without myelopathy and BL Hip OA presents today for . PT states he received 80% relief x 4 wks s/p procedure. Pain level is currently at 8/10 in intensity, constant, localized in the lower aspect of his lumbar spine, dull/ achy in character w shooting towards the BLEs. Pain is provoked by weight bearing activity. Pain is alleviated with PT in the past, home exercise regimen, chiropractic treatments x 5 visits without relief, heat, medications (Tramadol), repositioning and rest. Interventional pain procedures completed include BL Hip Bursa injections, BL RFA L3-L5 (2020) Patient is currently on Tramadol prn Patient denies any side effects of the medication(s), denies excessive drowsiness or sleepiness, denies suicidal ideation and reports that the current pain medication is helping to control the pain and improve activities of daily living. Patient denies any motor or sensory deficits. Patient denies any fever or night sweats, denies any change in the bowel movements or urination. Physical Examination: -Constitutional: Cooperative. Not in acute distress . - Neurologic: Cranial nerve II to XII intact. No focal neurological deficits. - Psychatric: Alert & oriented x 3. Matching mood & appropriate affect. Judgment and insight intact. - Musculoskeletal: Cervical spine: Muscle bulk/ tone/ strength in the bilateral upper extremities normal Vertebral body tenderness to palpation over Spurling test positive Distraction test positive Facet loading test positive Thoracic spine Muscle bulk / tone/ strength in the bilateral paraspinal muscles normal Vertebral body tender to palpation over Facet loading test positive Lumbar spine: +R acetabulofemoral TTP Motor bulk/ tone/ strength lower extremities , thigh and legs : 5/5 Deep tendon reflexes : Normal Knee Jerk. Normal Ankle Jerk . Vertebral body tenderness to palpation over Lumbar Facet Loading Test positive Straight Leg Raise: positive at 30 degrees right side/ left side Gaenslen's Test positive Sacral spine : Severe tenderness over the Sacroiliac joint: right side / left side Range of motion: Flexion of the lumbar spine <60 degrees Range of motion: Extension of the lumbar spine <20 degrees Gaenslen's Test positive Vasyl's Test positive Tod test: positive right side / left side Thigh Thrust Test Sacral Thrust Test Assessment and plan: Chronic low back pain secondary to lumbar degenerative disc disease , lumbar spondylosis with facet arthropathy without myelopathy, BL Hip OA Recommendation of R Hip Trochanteric Bursa injection. May need a series, up to 3 within a 6 mo period, for optimal pain relief. Risks, benefits of procedure discussed and pt verbalized understanding. Denies anticoagulant use or medical history of diabetes. All patient questions answered MAPS reviewed and it was appropriate. I have spent less than 30 minutes on patient care today. Dr Atkins was available by phone for the evaluation of this patient. The time was used to review the medical records including relevant urine studies and Prescription history (MAPs), review of the available imaging, evaluation and examination of t he patient, coordination of care with the medical staff and if applicable referring physicians, as well as creation of the medical record - Pain Location Lower Back Non-Pharmacological Interventions: Chiropractic Treatment, Heat, Home Exercise, Inactivity, Physical Therapy, Position/Reposition, Stretching Pharmacological Interventions: Block, PRN Medication, Topical Medication PQRS Narrative: Smoking Status Never smoker Blood Pressure 145/80 Pain Intensity [Lower Back] 8 Scale Used Numeric (1 - 10) Hx Alcohol Use (MH) Yes: RARE Home Medications: Ambulatory Orders Magnesium Gluconate [Magonate] 500 mg PO HS 11/15/15 Aspirin [Adult Low Dose Aspirin EC] 81 mg PO DAILY 04/26/17 Albuterol Nebulized [Ventolin Nebulized] 2.5 mg INHALATION Q6H PRN 04/15/20 Atorvastatin [Lipitor] 20 mg PO DAILY 04/15/20 Budesonide-Formot 160-4.5 Mcg [Symbicort 160-4.5 Mcg Inhaler] 2 puff INHALATION BID PRN 04/15/20 Celecoxib [CeleBREX] 200 mg PO DAILY 04/15/20 Furosemide [Lasix] 40 mg PO DAILY PRN 04/15/20 Ipratropium [place] 0.06%Nasal [Atrovent Nasal 0.06%] 1 spr EA NOSTRIL TID PRN 04/15/20 Losartan Potassium [Cozaar] 50 mg PO HS 04/15/20 Omeprazole 20 mg PO HS 04/15/20 Ubidecarenone [Co Q-10] 100 mg PO BID 04/15/20 hydroCHLOROthiazide 12.5 mg PO HS 04/15/20 Primidone [Mysoline] 12.5 mg PO BID 06/10/20 HYDROcodone/APAP 5-325MG [[place] 5-325] 1 tab PO Q6HR PRN 08/26/21 Controlled Substance Measures - Controlled Substance Measures Is patient prescribed a controlled substance at discharge?: No
== END ==
LOC: PNWHC3 10:59
PROVIDERS: ATTEND Specialist
DX: M51.36 Other intervertebral disc degeneration, lumbar region (principal); M47.816 Spondylosis without myelopathy or radiculopathy, lumbar region; G89.29 Other chronic pain; M17.0 Bilateral primary osteoarthritis of knee
CPT/HCPCS: 99211

== ENCOUNTER 2022-01-17 09:37 | Day surgery (SDC) | payer MEDICARE ==
[2022-01-13 11:46] VITALS: BMI 32.1
[2022-01-17] MEDS ORDERED: LIDOCAINE 1% (10MG/ML) FOR IV START INTRADERMA PRN (09:51)
[2022-01-17] MEDS ORDERED: LACTATED RINGERS 1,000 ML IV SCH (09:51)
[2022-01-17 09:59] VITALS: RESP 16; TEMP 96.5
[2022-01-17] MEDS ORDERED: methylPREDNISolone ACETATE 40 MG/ML 1 ML VIAL ONE (10:21)
[2022-01-17] MEDS ORDERED: ROPIVACAINE 5 MG/ML 20 ML AMPULE ONE (10:21)
--- NOTE | 2022-01-17 10:36 | P.PCN ---
Date of Procedure: 01/17/22 Procedure(s) Performed: Pre OP diagnoses= 1-Bilateral trochanteric bursitis . 2-lumbar spondylosis with lumbar facet arthropathy. 3-lumbar degenerative disc disease Postoperative diagnosis= same as preop diagnosis Operation= Bilateral trochanteric bursa steroid injection under fluoroscopy guidance.(The fluoroscopy images on file in Radiology department ) Anesthesia=local infiltration with Ropivacaine 1% 2 mL . Complications= none . Description of the procedure= patient had history of severe low back pain and hip pain secondary to left trochanteric bursitis for this reason, patient was a good candidate to have bilateral trochanteric bursa steroid injection which hopefully it will help his pain, risks and benefits of the procedure including but not limited to risk of infection and bleeding and not complete pain relief and ALLERGIC reaction to medication discussed with the patient and the alternative also discussed with the patient and he agreed with the preceding patient taken to the operating room placed in supine position OR standard monitors applied patient and after induction of anesthesia the hip area prepped with chlorhexidine 3 times, and under sterile technique using 25-gauge needle for skin and subcutaneous tissue infiltration was first admitted the right trochanteric bursa injection at 25-gauge Quincke-type spinal needle advanced slowly under fluoroscopy and placed in the left trochanteric bursa needle placement confirmed with AP and lateral view and after appropriate needle placement confirmed under fluoroscopy 5 ML of Ropivacaine 0.5% mixed with 20 mg of Depo-medrol injected after negative aspiration for heme and there was no CSF and there was no paresthesia during the injection and needle removed and then the exact same procedure was repeated for the Right trochanteric bursa and identified the right trochanteric bursa steroid injection also, patient tolerated the procedure well without any complication and she will follow up with the pain clinic in a few weeks and patient discharged home in stable condition
--- NOTE | 2022-01-17 10:45 | FL ---
EXAMINATION TYPE: FL guided pain mgmt statistic DATE OF EXAM: 01/17/2022 HISTORY: Fluoroscopy time 5 seconds of fluoroscopy provided. IMPRESSION: 1. Fluoroscopy time.
[2022-01-17 10:57] VITALS: BP 120/66; PULSE 62
== END 2022-01-17 11:04 | disposition home or self-care (01) ==
LOC: ORPAIN 09:37
PROVIDERS: ATTEND Specialist
DX: M70.62 Trochanteric bursitis, left hip (principal); M70.61 Trochanteric bursitis, right hip; M47.816 Spondylosis without myelopathy or radiculopathy, lumbar region; M51.36 Other intervertebral disc degeneration, lumbar region; M70.71 Other bursitis of hip, right hip
CPT/HCPCS: 20610; 77002; J1030; J2795

== ENCOUNTER → 2022-02-02 | Outpatient (CLI) | payer MEDICARE ==
[2022-02-02 11:26] VITALS: BP 119/79; PULSE 60; RESP 18; TEMP 98.3
--- NOTE | 2022-02-06 07:33 | P.PAINPG ---
PQRS Measure Charge Sheet Comment: A 76 yr old male w at side with a history of severe and chronic low back pain secondary to lumbar DDD and spondylosis with facet arthropathy without myelopathy presents today for evaluation s/p BL trochanteric bursitis injections. Pt states he received 60% pain relief x 2 wks s/p procedure. Pt exhibited 75% pain relief x 15 mo s/p BL RFA L4-L5, L5-S1 from 08/20/20. Pain level is currently at 9/10 in intensity, constant, localized in the R lower back, deep achy in character w shooting towards the R hip. Pain is provoked by over activity. Pain is alleviated with PT in 2019, home exercises daily, heat, medications (Tramadol), reclining and rest. Interventional pain procedures completed include BL Trochanteric Bursitis injections Patient is currently on Tramadol prn Patient denies any side effects of the medication(s), denies excessive drowsiness or sleepiness, denies suicidal ideation and reports that the current pain medication is helping to control the pain and improve activities of daily living. Patient denies any motor or sensory deficits. Patient denies any fever or night sweats, denies any change in the bowel movements or urination. Physical Examination: -Constitutional: Cooperative. Not in acute distress . - Neurologic: Cranial nerve II to XII intact. No focal neurological defic its. - Psychatric: Alert & oriented x 3. Matching mood & appropriate affect. Judgment and insight intact. - Musculoskeletal: Cervical spine: Muscle bulk/ tone/ strength in the bilateral upper extremities normal Vertebral body tenderness to palpation over Spurling test positive Distraction test positive Facet loading test positive Thoracic spine Muscle bulk / tone/ strength in the bilateral paraspinal muscles normal Vertebral body tender to palpation over Facet loading test positive Lumbar spine: Motor bulk/ tone/ strength lower extremities , thigh and legs : 5/5 Deep tendon reflexes : Normal Knee Jerk. Normal Ankle Jerk . Vertebral body tenderness to palpation over Lumbar Facet Loading Test positive jump reflex over L4-L5, L5-S1 facets, R>L Straight Leg Raise: positive at 30 degrees right side/ left side Gaenslen's Test positive Sacral spine : Severe tenderness over the Sacroiliac joint: right side / left side Range of motion: Flexion of the lumbar spine <60 degrees Range of motion: Extension of the lumbar spine <20 degrees Gaenslen's Test positive Tod test: positive right side / left side Thigh Thrust Test Sacral Thrust Test Assessment and plan: Chronic low back pain secondary to lumbar degenerative disc disease, spondylosis with facet arthropathy without myelopathy Recommendation of BL RFA L4-L5, L5-S1. Pt exhibited optimal pain relief w prior RFA on 08/20/20. Risks, benefits of procedure discussed and pt verbalized understanding. Denies anticoagulant use or medical history of diabetes. All patient questions answered I have spent less than 30 minutes on patient care today. Dr Atkins was available by phone for the evaluation of this patient. The time was used to review the medical records including relevant urine studies and Prescription history (MAPs), review of the available imaging, evaluation and examination of the patient, coordination of care with the medical staff and if applicable referring physicians, as well as creation of the medical record - Pain Location Right Lower Back Non-Pharmacological Interventions: Heat, Home Exercise, Inactivity, Physical Therapy, Stretching Pharmacological Interventions: PRN Medication, Topical Medication PQRS Narrative: Smoking Status Never smoker Hx Alcohol Use (MH) Yes: RARE Home Medications: Ambulatory Orders Magnesium Gluconate [Magonate] 500 mg PO HS 11/15/15 Aspirin [Adult Low Dose Aspirin EC] 81 mg PO DAILY 04/26/17 Albuterol Nebulized [Ventolin Nebulized] 2.5 mg INHALATION Q6H PRN 04/15/20 Atorvastatin [Lipitor] 20 mg PO DAILY 04/15/20 Budesonide-Formot 160-4.5 Mcg [Symbicort 160-4.5 Mcg Inhaler] 2 puff INHALATION BID PRN 04/15/20 Celecoxib [CeleBREX] 200 mg PO DAILY 04/15/20 Furosemide [Lasix] 40 mg PO DAILY PRN 04/15/20 Ipratropium [place] 0.06%Nasal [Atrovent Nasal 0.06%] 1 spr EA NOSTRIL TID PRN 04/15/20 Losartan Potassium [Cozaar] 50 mg PO HS 04/15/20 Omeprazole 20 mg PO HS 04/15/20 Ubidecarenone [Co Q-10] 100 mg PO BID 04/15/20 hydroCHLOROthiazide 12.5 mg PO HS 04/15/20 Primidone [Mysoline] 12.5 mg PO BID 06/10/20 Controlled Substance Measures - Controlled Substance Measures Is patient prescribed a controlled substance at discharge?: No
== END | disposition home or self-care (01) ==
LOC: PNWHC3 10:39
PROVIDERS: ATTEND Specialist
DX: M47.816 Spondylosis without myelopathy or radiculopathy, lumbar region (principal); M51.36 Other intervertebral disc degeneration, lumbar region; G89.29 Other chronic pain
CPT/HCPCS: 99211

== ENCOUNTER → 2022-02-20 | Outpatient (CLI) | payer MEDICARE ==
--- NOTE | 2022-02-21 06:56 | MR ---
EXAMINATION TYPE: MR knee RT wo con DATE OF EXAM: 02/20/2022 COMPARISON: 3 phase bone scan bilateral knees August 17, 2021. Postoperative right knee x-ray May 25 HISTORY: Right knee pain and instability, right knee replacement 2014. TECHNIQUE: Multiplanar, multisequence images of the knee is performed without IV contrast. FINDINGS: Susceptibility artifact from extensive metallic surgical change in the right knee is identified makcecilio g evaluation markedly suboptimal or extremely limited. No large joint effusion is seen. Small poplite al cyst is noted. Fibular head remains intact. IMPRESSION: As above.
== END | disposition home or self-care (01) ==
LOC: RADMRIMAIN 14:55
PROVIDERS: ATTEND Specialist
DX: M23.51 Chronic instability of knee, right knee (principal); M25.561 Pain in right knee

== ENCOUNTER 2022-03-17 09:25 | Day surgery (SDC) | payer MEDICARE ==
[2022-03-16 09:26] VITALS: BMI 32.1
[2022-03-17] MEDS ORDERED: LACTATED RINGERS 1,000 ML IV ONE (09:38)
[2022-03-17 09:50] VITALS: TEMP 98
[2022-03-17] MEDS ORDERED: ROPIVACAINE 5 MG/ML 20 ML AMPULE ONE (10:01)
[2022-03-17] MEDS ORDERED: TRIAMCINOLONE ACETONIDE 40 MG/ML 1 ML VIAL ONE (10:01)
[2022-03-17] MEDS ORDERED: MIDAZOLAM 2 MG/2 ML VIAL ONE (10:01)
[2022-03-17] MEDS ORDERED: fentaNYL (PF) 50 MCG/ML 2 ML AMP ONE (10:01)
--- NOTE | 2022-03-17 10:33 | P.PCN ---
Date of Procedure: 03/17/22 Surgeon: Mary Acosta Pathology: none sent Condition: stable Disposition: PACU Description of Procedure: PREOPERATIVE DIAGNOSIS: Lumbar spondylosis without myelopathy, morbid obesity POSTOPERATIVE DIAGNOSIS: Lumbar spondylosis without myelopathy,morbid obesity PROCEDURES : Bilateral Radiofrequency thermocoagulation L4-L5, and L5-S1 medial branch, with fluoroscopic guidance ANESTHESIA: IV moderate conscious sedation with versed and fentanyl by the anesthesia Department and local infiltration with lidocaine 1% 5 ml Physician:Mary Acosta MD EBL: Minimal PROCEDURE INDICATION: The patient with low back pain secondary to lumbar facet arthropathy who had significant relief of pain with previous diagnostic lumbar medial branch block with Ropivacaine0.5%. PROCEDURE DESCRIPTION / TECHNIQUE: The patient was seen and identified in the preoperative area. Risks, benefits, complications, including but not limited to risk of infection ,bleeding , allergic reactions to the medications and no complete pain relief , and alternatives were discussed with the patient, the patient agreed to proceed with the procedure and signed the consent. IV was started. Vital signs remained stable throughout the procedure. Patient was taken to the OR and time out was completed. The patient was placed in the prone position on the procedure table. The lumber area was prepped and draped in the usual sterile fashion. . Vital signs were closely monitored during the procedure .IV sedation was used during the procedure to decrease patients anxiety. The target points were identified as follows: For the L5-S1 level which corresponds to the dorsal ramus of L5 the target point was at the superior medial aspect of the sacral ala on the Rt side of the spine on the AP view of fluoroscopy and for the L3, and L4 medial branches the target points were at the connection between the transverse process and the superior articular process of L4, and L5 vertebra respectively on the Rt oblique view of fluoroscopy. skin was marked, and localized with 1% lidocaineat these points. Subsequently, an 18 [id number] radiofrequency needles with a 10-mm curved active tips were advanced guided by fluoroscopy to each of the target points mentioned above in a superior medial direction to get the active tips as parallel as possible to the medial branches tracks. AP, oblique, and lateral views of fluoroscopy were used to verify needle tips position. Each level then underwent motor testing at 2.5 Hz and 0 to 3 volt with local stimulation, but no radicular symptoms down the legs. I then injected 1 mL of lidocaine 1% in each needle before starting radiofrequency thermocoagulation at 80 degrees celsius for 90 seconds. After that I injected 1 ml of PF Ropivacaine 0.5%(3 mls) with 40 mg of Kenalog, 1 mL of this mixture was given in each needle before taking the needles out intact. Then the left side with the same levels was done in the same manner. At the end of the procedure, the skin was cleansed and bandages were applied. A copy of needle placement fluoroscopy was saved on the C-arm machine. COMPLICATIONS: No acute complications. DISPOSITION / PLANS: The patient was placed in a supine position and transferred to the recovery area in a stable condition for observation and was discharged from the recovery room after meeting discharge criteria. Home discharge instructions given to the patient by the staff. The patient was reexam ined prior to discharge. The patient will schedule a follow up in the clinic in 2-4 weeks. Sedation time: Sedation was provided by the anesthesia Department
[2022-03-17] MEDS ORDERED: IV FLUID CONTINUATION 1,000 ML IV ONE (10:39)
[2022-03-17 10:43] VITALS: RESP 16
--- NOTE | 2022-03-17 10:55 | FL ---
Intraoperative/procedural fluoroscopic services were provided for lumbar facet block. Total fluorosco py time is 20 seconds with a total of 6 submitted images to PACS. Please see the operative note for f urther details.
[2022-03-17 10:57] VITALS: BP 112/65; PULSE 70
== END 2022-03-17 11:13 | disposition home or self-care (01) ==
LOC: ORPAIN 09:25
PROVIDERS: ATTEND Anesthesiology
DX: M47.816 Spondylosis without myelopathy or radiculopathy, lumbar region (principal); E66.01 Morbid (severe) obesity due to excess calories; I25.10 Atherosclerotic heart disease of native coronary artery without angina pectoris; I10 Essential (primary) hypertension; Z95.5 Presence of coronary angioplasty implant and graft; E78.5 Hyperlipidemia, unspecified; M19.90 Unspecified osteoarthritis, unspecified site; Z79.01 Long term (current) use of anticoagulants; Z79.02 Long term (current) use of antithrombotics/antiplatelets; Z79.51 Long term (current) use of inhaled steroids; Z79.891 Long term (current) use of opiate analgesic; Z79.899 Other long term (current) drug therapy; Z79.52 Long term (current) use of systemic steroids; Z79.1 Long term (current) use of non-steroidal anti-inflammatories (NSAID); Z79.82 Long term (current) use of aspirin; Z79.811 Long term (current) use of aromatase inhibitors; Z96.659 Presence of unspecified artificial knee joint; Z98.890 Other specified postprocedural states
CPT/HCPCS: 64635; 64636; J2250; J3301; J3010; J2795

== ENCOUNTER → 2022-04-03 | Outpatient (CLI) | payer MEDICARE ==
[2022-04-03 10:38] VITALS: BP 138/75; PULSE 85; RESP 18; TEMP 97.8
--- NOTE | 2022-04-03 15:23 | P.PAINPG ---
PQRS Measure Charge Sheet Comment: A 76 yr old male w at side with a history of severe and chronic low back pain secondary to lumbar DDD and spondylosis with facet arthropathy without myelopathy presents today for evaluation s/p BL RFA L3-L5. Pt states he experienced 80 % pain relief s/p procedure. Pain level is provoked at 2 /10 in intensity, constant, localized in the lumbar spine, achy in character without shooting pain. Pain is provoked by standing/ walking for periods of 30 min or more. Pain is alleviated with PT in the past, heat, meds (Tramadol), home exercise as tolerated, sitting, repositioning and rest. Interventional pain procedures completed include BL RFA L3-L5 Patient is currently on Tramadol, OTC topicals Patient denies any side effects of the medication(s), denies excessive drowsiness or sleepiness, denies suicidal ideation and reports that the current pain medication is helping to control the pain and improve activities of daily living. Patient denies any motor or sensory deficits. Patient denies any fever or night sweats, denies any change in the bowel movements or urination. Physical Examination: -Constitutional: Cooperative. Not in acute distress . - Neurologic: Cranial nerve II to XII intact. No focal neurological deficits. - Psychatric: Alert & oriented x 3. Matching mood & appropriate affect. Judgment and insight intact. - Musculoskeletal: Cervical spine: Muscle bulk/ tone/ strength in the bilateral upper extremities normal Vertebral body tenderness to palpation over Spurling test positive Distraction test positive Facet loading test positive Thoracic spine Muscle bulk / tone/ strength in the bilateral paraspinal muscles normal Vertebral body tender to palpation over Facet loading test positive Lumbar spine: Motor bulk/ tone/ strength lower extremities , thigh and legs : 5/5 Deep tendon reflexes : Normal Knee Jerk. Normal Ankle Jerk . Vertebral body tenderness to palpation over Lumbar Facet Loading Test positive Straight Leg Raise: positive at 30 degrees right side/ left side Gaenslen's Test positive Sacral spine : Severe tenderness over the Sacroiliac joint: right side / left side Range of motion: Flexion of the lumbar spine <60 degrees Range of motion: Extension of the lumbar spine <20 degrees Gaenslen's Test positive Tod test: positive right side / left side Thigh Thrust Test Sacral Thrust Test Assessment and plan: Chronic low back pain secondary to lumbar degenerative disc disease, spondylosis with facet arthropathy without myelopathy Pt had sufficient pain relief w BL RFA L3-L5 procedure. He will follow up w Dr Diaz re: BL knee pain and may return to our clinic on an as needed basis. All patient questions answered I have spent less than 30 minutes on patient care today. Dr Atkins was available by phone for the evaluation of this patient. The time was used to review the medical records including relevant urine studies and Prescription history (MAPs), review of the available imaging, evaluation and examination of the patient, coordination of care with the medical staff and if applicable referring physicians, as well as creation of the medical record - Pain Location Lower Back Non-Pharmacological Interventions: Heat, Home Exercise, Inactivity, Physical Therapy, Position/Reposition, Sitting, Stretching Pharmacological Interventions: Block, PRN Medication, Topical Medication PQRS Narrative: Smoking Status Never smoker Hx Alcohol Use (MH) Yes: RARE Home Medications: Ambulatory Orders Magnesium Gluconate [Magonate] 500 mg PO HS 11/15/15 Aspirin [Adult Low Dose Aspirin EC] 81 mg PO DAILY 04/26/17 Albuterol Nebulized [Ventolin Nebulized] 2.5 mg INHALATION Q6H PRN 04/15/20 Atorvastatin [Lipitor] 20 mg PO DAILY 04/15/20 Budesonide-Formot 160-4.5 Mcg [Symbicort 160-4.5 Mcg Inhaler] 2 puff INHALATION BID PRN 04/15/20 Celecoxib [CeleBREX] 200 mg PO DAILY 04/15/20 Furosemide [Lasix] 40 mg PO DAILY PRN 04/15/20 Ipratropium Keldron 0.06%Nasal [Atrovent Nasal 0.06%] 1 spr EA NOSTRIL TID PRN 04/15/20 Losartan Potassium [Cozaar] 50 mg PO HS 04/15/20 Omeprazole 20 mg PO HS 04/15/20 Ubidecarenone [Co Q-10] 100 mg PO BID 04/15/20 hydroCHLOROthiazide 12.5 mg PO HS 04/15/20 Primidone [Mysoline] 12.5 mg PO BID 06/10/20 Controlled Substance Measures - Controlled Substance Measures Is patient prescribed a controlled substance at discharge?: No
== END ==
LOC: PNWHC3 10:13
PROVIDERS: ATTEND Specialist
DX: M47.816 Spondylosis without myelopathy or radiculopathy, lumbar region (principal); M51.36 Other intervertebral disc degeneration, lumbar region
CPT/HCPCS: 99211

== ENCOUNTER → 2023-12-24 | Outpatient (CLI) | payer MEDICARE ==
[2023-12-24 11:58] LABS: Appearance,Urine Clear (Clear); Bilirubin,Urine Negative (Negative); Blood,Urine Negative (Negative); Color,Urine Light Yellow; Glucose,Urine (UA) Negative (Negative); Ketones,Urine Negative (Negative); Leukocyte Esterase,Urine Negative (Negative); Nitrite,Urine Negative (Negative); PH, Urine 5.5 (5.0-8.0); Protein,Urine Negative (Negative); Specific Gravity,Urine 1.014 (1.001-1.035); Urobilinogen,Urine <2.0 mg/dL (<2.0)
[2023-12-24 12:25] LABS: INR 0.9 (<1.2); Partial Thromboplastin Time 24.2 sec (22.0-30.0); Prothrombin Time 10.3 sec (10.0-12.5)
[2023-12-24 15:50] LABS: Chol/HDL Ratio 3.02 Ratio; LDL Cholesterol,Calculated 73.1 mg/dL (0.0-131.0); VLDL Calculation 16.62 mg/dL (5.00-40.00)
[2023-12-24 16:01] LABS: ALT 30 U/L (10-49); AST 27 U/L (14-35); Albumin 4.2 g/dL (3.8-4.9); Albumin/Globulin Ratio 1.83 Ratio (1.60-3.17); Alkaline Phosphatase 55 U/L (41-126); BUN/Creat Ratio 14.22 Ratio (12.00-20.00); Blood Urea Nitrogen 12.8 mg/dL (9.0-27.0); Calcium 9.5 mg/dL (8.7-10.3); Carbon Dioxide 26.1 mmol/L (21.6-31.8); Chloride 104 mmol/L (96-109); Globulin 2.3 g/dL (1.6-3.3); Glucose 112 mg/dL (70-110); Potassium 4.3 mmol/L (3.5-5.5); Sodium 141 mmol/L (135-145); Total Bilirubin 0.5 mg/dL (0.3-1.2); Total Protein 6.5 g/dL (6.2-8.2)
[2023-12-24 16:07] LABS: HCT 44.1 % (39.6-50.0); HGB 14.6 g/dL (13.0-17.0); MCHC 33.1 g/dL (32.0-37.0); MCV 93.6 FL (80.0-97.0); Mean Platelet Volume 9.4 FL (9.5-12.2); NRBC Per 100 WBC 0 X 10*3/uL (0.00-0.01); Platelet Count 187 X 10*3/uL (140-440); RBC 4.71 X 10*6/uL (4.40-5.60); RDW 12.8 % (11.5-14.5)
== END | disposition home or self-care (01) ==
LOC: LABPAT 10:37
PROVIDERS: ATTEND Orthopaedic Surgery
DX: Z01.812 Encounter for preprocedural laboratory examination (principal); Z22.322 Carrier or suspected carrier of Methicillin resistant Staphylococcus aureus; E78.2 Mixed hyperlipidemia; E11.65 Type 2 diabetes mellitus with hyperglycemia; I10 Essential (primary) hypertension; N44.00 Torsion of testis, unspecified
CPT/HCPCS: 80053; 80061; 81003; 82306; 83036; 84153; 84443; 85027; 85610; 85730; 86850; 86900; 86901; 87070

== ENCOUNTER 2024-01-04 09:05 | Day surgery (SDC) | payer MEDICARE ==
[~2024-01-04 09:05] MED LIST changes: +HYDROmorphone 0.5 MG/0.5 ML SYRINGE IVP PRN; -LACTATED RINGERS 1,000 ML IV SCH; +TRANEXAMIC 1,000 MG/100ML-NACL 1,000 MG in SALINE 1 100ML.BAG IV PRN; +TRANEXAMIC 1,000 MG/100ML-NACL 1,000 MG in SALINE 1 100ML.BAG IVPB PRN
[2024-01-04] MEDS: IV FLUID CONTINUATION 1,000 ML IV ONE (09:15)
[2024-01-04] MEDS: ACETAMINOPHEN TAB 500 MG TAB PO PRN (09:30)
[2024-01-04] MEDS: DOCUSATE 100 MG CAP PO PRN (09:30)
[2024-01-04] MEDS: oxyCODONE ER 10 MG TAB.ER.12H PO PRN (09:30)
[2024-01-04] MEDS: DEXAMETHASONE SOD PHOSPHATE 10 MG/ML 1 ML VIAL IV PRN (09:31)
[2024-01-04] MEDS: FAMOTIDINE 20 MG/2 ML VIAL IVP PRN (09:31)
[2024-01-04] MEDS: LACTATED RINGERS 1,000 ML IV SCH (09:31)
[2024-01-04] MEDS: ONDANSETRON 4 MG/2 ML VIAL IVP PRN (09:31)
[2024-01-04] MEDS: KETOROLAC 15 MG/ML 1 ML VIAL IVP PRN (09:32)
[2024-01-04] MEDS: MIDAZOLAM 2 MG/2 ML VIAL IV PRN (09:40)
[2024-01-04] MEDS: VANCOMYCIN 1,750 MG in SODIUM CHLORIDE 0.9% 500 ML 500 ML IVPB PRN (09:46)
[2024-01-04] MEDS ORDERED: fentaNYL (PF) 50 MCG/ML 2 ML AMP ONE (09:47)
[2024-01-04] MEDS ORDERED: LIDOCAINE 1% INJ 10MG/ML (20 ML MDV) ONE (09:47)
[2024-01-04] MEDS ORDERED: PROPOFOL 10 MG/ML 20 ML VIAL IV ONE (09:47)
[2024-01-04] MEDS ORDERED: DEXAMETHASONE SOD PHOSPHATE 4 MG/ML 1 ML VIAL ONE (09:47)
[2024-01-04] MEDS ORDERED: SUCCINYLCHOLINE CHLORIDE 200 MG/10 ML VIAL IV ONE (09:47)
[2024-01-04] MEDS ORDERED: ROCURONIUM 10 MG/ML (5 ML VIAL) IV ONE (09:47)
[2024-01-04] MEDS ORDERED: ROPIVACAINE 5 MG/ML 30 ML VIAL ONE (09:47)
[2024-01-04] MEDS ORDERED: PHENYLEPHRINE 10 MG/ML VIAL ONE (09:47)
[2024-01-04] MEDS ORDERED: NEOSTIGMINE 1 MG/ML 10 ML VIAL ONE (09:47)
[2024-01-04] MEDS ORDERED: TRANEXAMIC 1,000 MG/100ML-NACL PREMIX BAG ONE (09:47)
[2024-01-04] MEDS ORDERED: GLYCOPYRROLATE 0.2 MG/ML 2 ML VIAL ONE (09:47)
[2024-01-04] MEDS: SODIUM CHLORIDE 0.9% 100 ML with ceFAZolin 2,000 MG IV ONE (09:52)
--- NOTE | 2024-01-04 10:31 | P.ANPRN ---
Procedure Note - Anesthesia - Nerve Block Performed Left Pranav Single Time Out Performed: Yes Date of Procedure: 01/04/24 Procedure Start Time: 09:39 Procedure Stop Time: :43 Location of Patient: PreOp Indication: Acute Post-Operative Pain, Requested by Surgeon Sedation Type: Sedate with meaningful contact maintained Preparation: Sterile Prep Position: Supine Needle Types: Pajunk Needle Gauge: 21 Ultrasound used to visualize needle placement: Yes Ultrasound used to observe medication spread: Yes Blood Aspirated: No Pain Paresthesia on Injection Noted: No Resistance on Injection: Normal Image Stored and Saved: Yes Events: Uneventful and Well Tolerated (Ropivacaine 0.5% 20 cc plus dexamethasone 4 mg)
[2024-01-04] MEDS: ROPIVACAINE/EPI/CLONIDINE/KET 50 ML SYRINGE MISCELLANE PRN (10:33)
--- NOTE | 2024-01-04 11:39 | P.OP ---
Date of Procedure: 01/04/24 Preoperative Diagnosis: severe left hip osteoarthritis Postoperative Diagnosis: Same Procedure(s) Performed: Left direct anterior total hip arthroplasty Implants: 1. Citlaly Trident II Acetabular Cup, Size #58 2. Citlaly Insignia Size # 9 Femoral Stem, High Offset 3. Biolox delta femoral head, 36 mm, - 5 mm neck Anesthesia: NELSON, regional Surgeon: Roldan Nunez Ship Erector #1: Chance Byrne Estimated Blood Loss (ml): 200 IV fluids (ml): 800 Pathology: none sent Condition: stable Disposition: PACU Indications for Procedure: I had a long discussion with the patient in the office on the potential risks and complications of an elective total hip replacement through a direct anterior approach. Risks discussed include, but are certainly not limited to, risks from anesthesia, superficial infection requiring local wound care or antibiotics, deep bennett-prosthetic joint infection and the treatment required to eradicate infection, intraoperative fracture, postoperative periprosthetic fracture, damage to local blood vessels or nerves particularly the lateral femoral cutaneous nerve, delayed wound healing requiring local wound care or possibly surgical debridement, hip dislocation, leg length discrepancy, soft tissue irritation around the total hip implant such as iliopsoas tendinitis or trochanteric bursitis, wear and osteolysis from the implants, squeaking or audible noises, groin pain, thigh pain, heterotopic ossification, stiffness, aseptic loosening of the implants, dissatisfaction with surgical outcome, need for revision surgery, DVT, PE, swelling of the operative extremity, acute coronary event, stroke, failure to thrive, and possibly loss of life or limb. The patient understands that while these are the most common complications after an elective hip replacement there are certainly other less common complications possible. They were given ample time to ask questions regarding the potential complications of a hip replacement. Following our discussion the patient p rovided their verbal and written consent to go forward with an elective total hip replacement. Description of Procedure: The patient was identified in the preoperative holding area and the correct hip was marked with my initials. I reviewed the procedure and consent with the patient. All of their questions were answered. The patient was then brought back into the operating room by anesthesia. While on the [facility] anesthesia was administered by the anesthesia team. Preoperative antibiotics and tranexamic acid were also given. After the patient was under anesthesia I examined their ankles to determine their preoperative leg length discrepancy. The skin over the anterior aspect of the hip was shaved to remove hair over the site of planned incision. Both feet and ankles were padded with webril and boots for the Gardner were applied. The patient was then carefully transferred onto the Gardner table. A perineal post was immediately placed. The arms were placed on arm holders and were well-padded. Both boots were secured to the spars on the Gardner table. The patient was positioned so that the pelvis was centered over the post. Nonsterile drapes were applied. A timeout was performed identifying the correct patient, operative extremity, and procedure. At this point fluoroscopy was brought in to take preoperative images of the pelvis and operative hip. U sing the standing AP pelvis from the office as a template, a comparable image was obtained with fluoroscopy. A metallic bar was used to create a bi-ischial line for use as a reference to leg length adjustments during the procedure. Global offset was also measured on both the operative and nonoperative leg. Fluoroscopy was then brought out and a pre-scrub using a chlorhexidine scrub brush was performed. The operative limb was then prepped and draped in the standard sterile fashion. An anterior longitudinal incision was made lateral and distal to the ASIS. The skin and subcutaneous tissues were incised sharply. The underlying tensor fascia was identified and incised in its midportion. The fascia was dissected free from the underlying muscle and the muscle belly was retracted. A blunt tipped cobra retractor was placed over the superior neck under the muscle fibers of the gluteus minimus. The deep enveloping fascia of the tensor was incised. The anterior leash of vessels were then identified and cauterized. The fascia between the rectus and the capsule was then incised and the pre-capsular fat was excised. A second Cobra was placed inferior to the neck. The interval between the rectus and iliocapsularis and the hip capsule was developed and a retractor was placed carefully over the anterior rim of the acetabulum. A T-shaped anterior capsulotomy was performed. The superior capsular leaflet was left in place in the inferior capsular flap was excised. The Cobra retractors were placed intracapsularly. We then made a femoral neck osteotomy according to preoperative and intraoperative templating and confirmed the level of the osteotomy using fluoroscopic imaging. The femoral head was removed, passed off to the back table, and sized. The superior capsular flap was excised. Retractors were placed circumferentially exposing the acetabulum. We then circumferentially debrided the acetabulum free of labrum and osteophytes. The pulvinar was removed to fully visualize the cotyloid fossa. We then sequentially reamed to achieve peripheral fit and excellent bleeding subchondral bone. The socket was thoroughly irrigated. The acetabular component was impacted into the appropriate position using fluoroscopy to guide version, inclination, and depth of insertion taking care to have a comparable image of the AP pelvis to the standing image taken in the office. An excellent press-fit was achieved and final position was confirmed using fluoroscopy. The press fit was augmented with bony cancellus dome screws. The liner was then impacted into the socket. Attention was then turned to the femur. The remnant dorsal lateral capsule was excised. The short external rotators were visible and protected. A bone hook was used to confirm appropriate translation of the trochanter away from the acetabulum. The leg was then extended and adducted and the bone hook was used to elevate the femur for broaching. A box osteotome and blunt tipped canal sound was then utilized to gain access to the femoral canal. We then sequentially broached the femur in appropriate anteversion until excellent torsional stability was achieved. The neck cut was brought flush to the trial broach with a calcar planar. A trial neck and head were then placed onto the broach and the hip was atraumatically reduced under direct visualization. External rotation to 90 was performed to assess stability. Fluoroscopy was brought in. An AP and lateral fluoroscopic image of the proximal femur was obtained to assess position and fill of the trial broach. An AP of the pelvis w as then obtained and matched to the preoperative image taken. A bi-ischial bar was then placed and measurements were taken to assess changes in length and offset. The hip was then carefully dislocated, the proximal femur was exposed, and the trial implants were removed. The wound and proximal femur was thoroughly irrigated using sterile saline and pulsatile lavage. The final femoral implant was dispensed and gently tapped into place generating an excellent press-fit. The trunnion was cleansed and the final head was tapped into place to engage the Josue taper. The acetabulum was irrigated and visualized to be free of debris. The hip was carefully reduced. Stability was checked clinically with external rotation to 90 and there was no evidence of instability. Final fluoroscopic images were taken. The wound was then thoroughly irrigated and soaked with a dilute Betadine rinse for 3 minutes. 3 L of sterile saline was irrigated through the wound using pulsatile lavage. Local anesthetic cocktail was injected into the soft tissues around the surgical field. The wound was then closed in layers. A sterile dressing was placed over the surgical incision. The drapes were taken down and the patient was carefully transferred off of the Gardner table. Following removal of the boots the leg lengths felt acceptable. The patient was then taken to recovery room having tolerated the procedure well. Chance Cintron was required as a skilled ob gyn physician assistant due to the complexity of surgery for patient positioning, draping, exposure, retraction, closure of wound, and application of dressing. PLAN: The patient can weight-bear as tolerated on the operative extremity. 2 doses of postoperative antibiotics. DVT prophylaxis with aspirin 81 mg twice a day based on preoperative risk stratification. Physical therapy for gait training.
--- NOTE | 2024-01-04 11:45 | XR ---
EXAMINATION TYPE: XR Hip Limited LT DATE OF EXAM: 01/04/2024 COMPARISON: NONE HISTORY: Pain TECHNIQUE: In view submitted. FINDINGS: Intraoperative images of the left hip demonstrate surgical change. Surgical bruce are noted. Previo us right hip replacement surgery also identified. IMPRESSION: 1. Postoperative change. [facility], , 01/04/2024 11:43 AM
--- NOTE | 2024-01-04 11:46 | FL ---
EXAMINATION TYPE: FL guidance operating room DATE OF EXAM: 01/04/2024 HISTORY: Fluoroscopy time Total dose area product (DAP) in uGy*m?, mGy*cm? (or similar): 3.0170 IMPRESSION: 1. Fluoroscopy time. [facility], , 01/04/2024 11:44 AM
[2024-01-04] MEDS ORDERED: HYDROcodone/APAP 10-325MG 1 EACH TAB PO PRN (11:48)
[2024-01-04] MEDS ORDERED: ONDANSETRON 4 MG/2 ML VIAL IVP PRN (11:48)
[2024-01-04] MEDS ORDERED: HYDROmorphone 0.5 MG/0.5 ML SYRINGE IVP PRN ×2 (11:48)
[2024-01-04] MEDS ORDERED: MAGNESIUM HYDROXIDE 2,400 MG/30 ML CUP PO PRN (11:48)
[2024-01-04] MEDS ORDERED: hydrOXYzine pamoate 25 MG CAP PO PRN (11:48)
[2024-01-04] MEDS ORDERED: NALOXONE 0.4 MG/ML 1 ML VIAL IV PRN (11:48)
[2024-01-04] MEDS: HYDROmorphone 0.5 MG/0.5 ML SYRINGE IVP PRN (15:43)
[2024-01-04] MEDS: SODIUM CHLORIDE 0.9% 1,000 ML IV SCH (15:46)
[2024-01-04] MEDS: hydroCHLOROthiazide 12.5 MG CAP PO SCH (18:04)
[2024-01-04] MEDS: LOSARTAN 50 MG TAB PO SCH (20:29)
[2024-01-04] MEDS: MAGNESIUM OXIDE 400 MG TAB PO SCH (20:29)
[2024-01-04] MEDS: SENNOSIDES-DOCUSATE SODIUM 1 EACH TAB PO SCH (20:30)
[2024-01-04] MEDS: ARTIFICIAL TEARS-HYPROMELLOSE DROPS 15 ML BTL BOTH EYES PRN (20:30)
[2024-01-04] MEDS: PRIMIDONE 50 MG TAB PO SCH (20:30)
[2024-01-04] MEDS: ASPIRIN 81 MG PO SCH (20:30)
[2024-01-04] MEDS: HYDROcodone/APAP 5-325MG 1 EACH TAB PO PRN (23:36)
[2024-01-05] MEDS ORDERED: ACETAMINOPHEN TAB 325 MG TAB PO PRN (01:06)
[2024-01-05 07:50] VITALS: BP 161/79; PULSE 89; RESP 16; TEMP 97.9
[2024-01-05] MEDS: ISOSORBIDE MONONITRATE ER 30 MG TAB.ER.24H PO SCH (08:08)
[2024-01-05] MEDS: ATORVASTATIN 20 MG TAB PO SCH (08:08)
[2024-01-05] MEDS: CYANOCOBALAMIN 500 MCG TAB PO SCH (08:08)
--- NOTE | 2024-01-05 08:22 | P.DS ---
Providers Date of admission: Sunday01/04/2024 Attending physician: Roldan Nunez Consults: 01/04/24 11:48 Consult Physician Routine Consulting Provider: Osei Winters Consult Reason/Comments: Postop left total hip arthroplasty medical management Do you want consulting provider notified?: Yes Primary care physician: Osei Winters Hospital Course: this very pleasant 78-year-old male who is admitted under my care and underwent an uncomplicated left total hip replacement yesterday. Following an uncomplicated surgery was transferred to the orthopedic floor. He was given 2 doses of antibiotics. He was started on aspirin for DVT prophylaxis. I evaluated the patient on postoperative day #1 and he was doing well. His pain was well controlled. The dressing over his hip was intact. Femoral nerve function was intact. His thigh was soft. He was able to actively plantarflex and dorsiflex his ankle and his toes. He worked with physical therapy and did well. Internal medicine was consulted and helped with his perioperative medical management. He was cleared for discharge home on postoperative day #1. Patient Condition at Discharge: Good Plan - Discharge Summary Discharge Rx Participant: No New Discharge Prescriptions: New HYDROcodone/APAP 5-325MG [Abingdon 5] 1 - 2 each PO Q6HR PRN #48 tab PRN Reason: Pain Omeprazole 20 mg PO DAILY #30 tab Ondansetron [Zofran] 4 mg PO Q6HR PRN #30 tab PRN Reason: Nausea Aspirin 81 mg PO BID #60 tab Celecoxib [CeleBREX] 200 mg PO DAILY PRN #30 cap PRN Reason: Pain Docusate [Colace] 100 mg PO BID #60 capsule No Action Magnesium Gluconate [Magonate] 400 mg PO HS Aspirin [Adult Low Dose Aspirin EC] 81 mg PO DAILY Atorvastatin [Lipitor] 20 mg PO DAILY Ubidecarenone [Co Q-10] 200 mg PO DAILY Losartan Potassium [Cozaar] 50 mg PO HS hydroCHLOROthiazide 12.5 mg PO HS Furosemide [Lasix] 20 mg PO DAILY PRN PRN Reason: Edema Primidone [Mysoline] 50 mg PO BID traMADol HCL 50 mg PO Q6H B12(Unk) 1 tab PO DAILY Isosorbide Dinitrate [Isordil] 30 mg PO DAILY Celecoxib 200 mg PO DAILY Discharge Medication List Magnesium Gluconate [Magonate] 400 mg PO HS 11/15/15 [History] Aspirin [Adult Low Dose Aspirin EC] 81 mg PO DAILY 04/26/17 [History] Atorvastatin [Lipitor] 20 mg PO DAILY 04/15/20 [History] Furosemide [Lasix] 20 mg PO DAILY PRN 04/15/20 [History] Losartan Potassium [Cozaar] 50 mg PO HS 04/15/20 [History] Ubidecarenone [Co Q-10] 200 mg PO DAILY 04/15/20 [History] hydroCHLOROthiazide 12.5 mg PO HS 04/15/20 [History] Primidone [Mysoline] 50 mg PO BID 06/10/20 [History] B12(Unk) 1 tab PO DAILY 12/31/23 [History] Celecoxib 200 mg PO DAILY 12/31/23 [History] Isosorbide Dinitrate [Isordil] 30 mg PO DAILY 12/31/23 [History] traMADol HCL 50 mg PO Q6H 12/31/23 [History] Aspirin 81 mg PO BID #60 tab 01/04/24 [Rx] Celecoxib [CeleBREX] 200 mg PO DAILY PRN #30 cap 01/04/24 [Rx] Docusate [Colace] 100 mg PO BID #60 capsule 01/04/24 [Rx] HYDROcodone/APAP 5-325MG [Abing[place] 5] 1 - 2 each PO Q6HR PRN #48 tab 01/04/24 [Rx] Omeprazole 20 mg PO DAILY #30 tab 01/04/24 [Rx] Ondansetron [Zofran] 4 mg PO Q6HR PRN #30 tab 01/04/24 [Rx] Follow up Appointment(s)/Referral(s): Roldan Nunez MD [Medical Doctor] - 2 Weeks Activity/Diet/Wound Care/Special Instructions: The Medical Team home care 1. Weight-bear as tolerated on your operative extremity unless instructed otherwise. Use a walker or other assistive device to ambulate. 2. Leave surgical dressing in place. If your dressing becomes saturated with blood, there is drainage, or the dressing becomes loose please contact the office. 3. It is okay to shower with your surgical dressing, but do not submerge in water (no hot tubs, bath's, swimming etc.) 4. Take your blood clot prevention medication as prescribed (aspirin, Eliquis, Xarelto, and Plavix are commonly prescribed medications for blood clot prevention) 5. While taking Abingdon or Percocet for pain take a stool softener (Ex: Colace) and drink lots of water. 6. Keep all follow-up appointments as scheduled. You will usually be seen in 1-2 weeks following surgery. 7. Please contact the office with any questions or concerns [phone] Discharge Disposition: HOME WITH HOME HEALTH SERVICES
[2024-01-05] MEDS ORDERED: NON FORMULARY DRUG (Ubidecarenone [Co Q-10] 100 MG Capsule) PO SCH (09:00)
[2024-01-05 10:14] LABS: Basophils # (A) 0.01 X 10*3/uL (0.00-0.10); Basophils % (A) 0.1 %; Eosinophils # (A) 0 X 10*3/uL (0.04-0.35); Eosinophils % (A) 0 %; HCT 34.7 % (39.6-50.0); HGB 11.8 g/dL (13.0-17.0); Lymphocytes # (A) 0.79 X 10*3/uL (0.90-5.00); Lymphocytes % (A) 7.3 %; MCH 32.4 pg (27.0-32.0); MCV 95.3 FL (80.0-97.0); Mean Platelet Volume 10.4 FL (9.5-12.2); Monocytes # (A) 0.89 X 10*3/uL (0.20-1.00); Monocytes % (A) 8.2 %; NRBC Per 100 WBC 0 X 10*3/uL (0.00-0.01); Neutrophils # (A) 9.11 X 10*3/uL (1.80-7.70); Neutrophils % (A) 83.9 %; Platelet Count 167 X 10*3/uL (140-440); RBC 3.64 X 10*6/uL (4.40-5.60); RDW 12.8 % (11.5-14.5); WBC 10.85 X 10*3/uL (4.50-10.00)
--- NOTE | 2024-01-05 16:06 | P.CONS ---
History of Present Illness - Reason for Consult Consult date: 01/04/24 Medical management Requesting physician: Roldan Nunez - Chief Complaint Status post left total hip arthroplasty via anterior approach - History of Present Illness HISTORY OF PRESENT ILLNESS: This is a 78-year-old male with a previous medical history significant for hypertension and hypertensive cardiovascular disease, mixed hyperlipidemia, coronary artery disease without angina pectoris, mild persistent asthma, osteoarthritis, diabetes mellitus type 2, obesity with obstructive sleep apnea, GERD, patient underwent left total hip arthroplasty via anterior approach that was done successfully by Dr. Nunez and we were asked to see the patient for postoperative medical management. Patient is laying down in bed in no apparent distress, he denies any chest pain, shortness of breath, he has no abdominal pain, nausea vomiting or diarrhea, his pain is well-controlled, patient seems to be doing just fine. REVIEW OF SYSTEMS: Constitutional: No documented fever, no chills, no night sweats. No weight change. No weakness, fatigue or lethargy. No daytime sleepiness. EENT: No headache. No blurred vision or double vision, no loss of vision. No l oss of Hearing, no ringing in the ears, no dizziness. No nasal drainage or congestion. No epistaxis. No sore throat. Lungs: No shortness of breath, no cough, no sputum production. No wheezing. Re ports dyspnea with activity. Cardiovascular: No chest pain, no lower extremity edema. No palpitations. No paroxysmal nocturnal dyspnea. No orthopnea. No lightheadedness or dizziness. No syncopal episodes. Abdominal: Reports abdominal pain. No nausea, vomiting. No diarrhea. No constipation. No bloody or tarry stools reports loss of appetite. Genitourinary: No dysuria, increased frequency, urgency. No urinary retention. Musculoskeletal: No myalgias. No muscle weakness, positive for gait dysfunction, no frequent falls. No back pain. No neck pain. Positive for left hip pain Integumentary: Left hip is covered with dressing, no lesions. No rash or pruritus. No unusual bruising. No change in hair or nails. Neurologic: No aphasia. No facial droop. No change in mentation. No head injury. No headache. No paralysis. No paresthesia. Psychiatric: No depression. No anxiety. No mood swings. Endocrine: No abnormal blood sugars. No weight change. PAST MEDICAL HISTORY: Hypertension and hypertensive cardiovascular disease. Mixed hyperlipidemia. Diabetes mellitus type 2. Mild persistent asthma. Coronary artery disease. GERD. Osteoarthritis. Enlarged prostate. Tremor. Obstructive sleep apnea. PAST SURGICAL HISTORY: Left heart catheterization with PCI of the RCA 2019 Right total knee arthroplasty. Left total knee arthroplasty. Bilateral cataract surgery. Right total hip arthroplasty. Tonsillectomy. SOCIAL HISTORY: Patient is a lifelong non-smoker, he drinks socially, he denies any drug use or abuse and lives with his . FAMILY HISTORY: Father at the age of 96 after he fell and broke his hip went to the rehab and he never made it out, mother at the age of 82 after she had fallen and she never make it after that, patient has 1 brother alive and well 57-year-old patient has twin sisters 65-year-old and both had breast cancer, he has a total of 5 sisters and he has 1 son alive and well. PHYSICAL EXAMINATION: General: 78-year-old male laying down in bed in no apparent distress. HEENT: Head is atraumatic, normocephalic, pupils were equal round reactive to light and recommendation, extraocular muscle movement were intact, sclera nonict nacho, conjunctivae were pale, mucous membranes of the mouth are somewhat dry. Neck: Supple, no JVP, normal carotid upstroke bilaterally, no lymphadenopathy. Chest: Decreased breath sounds at the bases, few rhonchi, no extremity wheezes, no chest wall tenderness, no intercostal retractions. Heart: First heart sound is normal, second heart sound is normal there is systolic ejection murmur 2/6 located in the left sternal border. Abdomen: Soft, nontender, nondistended, positive bowel sounds. Extremities: There is no edema no calf tenderness DP +2 bilaterally. Neurologic examination: Patient is awake alert and oriented x3, cranial nerves II-12 appear grossly intact, muscle power were 5 out of 5 in upper extremities and 5 out of 5 in bilateral lower extremities, deep tendon reflexes normal reanna aterally. ASSESSMENT AND PLAN: 1. Postoperative day #0 status post left total hip arthroplasty via anterior approach. Patient was instructed to use incentive spirometer to reduce the incidence of atelectasis and healthcare associated pneumonia, continue current pain management as outlined by orthopedic surgery, continue with DVT prophylaxis in the form of aspirin 81 mg orally twice every day, early ambulation, physical therapy evaluation tomorrow morning, likely home in the next 24 hours. 2. Hypertension and hypertensive cardiovascular disease. Continue patient on losartan 50 mg orally once every day, hydrochlorothiazide 12.5 mg once every day, monitor the patient blood pressure very closely. Hold off diuretics in the form of Lasix. 3. Mixed hyperlipidemia. Continue atorvastatin 20 mg once every day, continue co-Q10 200 mg once every day, monitor patient symptoms very closely. 4. Diabetes mellitus type 2. Appears to be stable at this time. 5. Coronary artery disease status post PCI of the RCA 2018. Continue patient on aspirin 81 mg once every day, continue patient on isosorbide dinitrate 30 mg once every day, follow-up with the patient. 6. Mild persistent asthma. Appears to be stable at this time. 7. GERD. Continue patient on PPI. 8. Osteoarthritis. Continue current pain management. 9. Obstructive sleep apnea. No CPAP. 10. DVT prophylaxis. Continue aspirin 81 mg orally twice every day. 11. GI prophylaxis. Continue PPI as needed. 12. Dr. Nunez thank you for the consult we will follow the patient along with you. Past Medical History Past Medical History: Coronary Artery Disease (CAD), GERD/Reflux, Hyperlipidemia, Hypertension, Osteoarthritis (OA) Additional Past Medical History / Comment(s): Tinnitis bilateral ears, essential tremors, occasional edema reanna legs,[place], physical therapy to assist with balance that comes and goes rashes at times see data solutions architect History of Any Multi-Drug Resistant Organisms: MRSA Year Discovered:: 2017 MDRO Source:: leg Past Surgical History: Heart Catheterization With Stent, Joint Replacement, Orthopedic Surgery, Tonsillectomy Additional Past Surgical History / Comment(s): rt knee replacement x2, 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 Smoking Status: Former smoker Past Alcohol Use History: Occasional Additional Past Alcohol Use History / Comment(s): smoked for a couple years in eary 20's Past Drug Use History: None Reported - Past Family History Sister(s) Family Medical History: Cancer Additional Family Medical History / Comment(s): Twin sisters with breast cancer. Mother Family Medical History: Osteoarthritis (OA) Father Family Medical History: Osteoarthritis (OA) Additional Family Medical History / Comment(s): Father is living and is in his 90's. Medications and Allergies Home Medications Medication Instructions Recorded Confirmed Type Magnesium Gluconate [Magonate] 400 mg PO HS 11/15/15 01/04/24 History Aspirin [Adult Low Dose Aspirin EC] 81 mg PO DAILY 04/26/17 01/04/24 History Atorvastatin [Lipitor] 20 mg PO DAILY 04/15/20 01/04/24 History Furosemide [Lasix] 20 mg PO DAILY PRN 04/15/20 01/04/24 History Losartan Potassium [Cozaar] 50 mg PO HS 04/15/20 01/04/24 History Ubidecarenone [Co Q-10] 200 mg PO DAILY 04/15/20 01/04/24 History hydroCHLOROthiazide 12.5 mg PO HS 04/15/20 01/04/24 History Primidone [Mysoline] 50 mg PO BID 06/10/20 01/04/24 History B12(Unk) 1 tab PO DAILY 12/31/23 01/04/24 History Celecoxib 200 mg PO DAILY 12/31/23 01/04/24 History Isosorbide Dinitrate [Isordil] 30 mg PO DAILY 12/31/23 01/04/24 History traMADol HCL 50 mg PO Q6H 12/31/23 01/04/24 History Aspirin 81 mg PO BID #60 tab 01/04/24 Rx Celecoxib [CeleBREX] 200 mg PO DAILY PRN #30 cap 01/04/24 Rx Docusate [Colace] 100 mg PO BID #60 capsule 01/04/24 Rx HYDROcodone/APAP 5-325MG [[place] 5] 1 - 2 each PO Q6HR PRN #48 tab 01/04/24 Rx Omeprazole 20 mg PO DAILY #30 tab 01/04/24 Rx Ondansetron [Zofran] 4 mg PO Q6HR PRN #30 tab 01/04/24 Rx Allergies Allergy/AdvReac Type Severity Reaction Status Date / Time No Known Allergies Allergy Verified 01/04/24 09:19 Physical Exam Vitals: Vital Signs Temp Pulse Pulse Resp BP BP Pulse Ox 01/04/24 13:49 71 137/75 96 01/04/24 13:34 70 142/80 96 01/04/24 13:21 82 122/61 95 01/04/24 13:04 75 142/78 98 01/04/24 12:50 79 133/81 97 01/04/24 12:34 97.5 F L 69 17 152/82 97 01/04/24 12:12 61 16 116/62 95 01/04/24 11:57 63 16 126/64 95 01/04/24 11:42 64 16 133/70 99 01/04/24 09:45 73 16 125/64 98 01/04/24 09:18 97.7 F 73 16 166/84 97 Intake and Output 01/04/24 01/04/24 01/04/24 06:59 14:59 22:59 Intake Total 200 Output Total 200 Balance 0 Intake: IV 200 Output: Estimated Blood Loss 200 Other: # Voids 1 Weight 116.2 kg
== END 2024-01-05 12:31 | disposition home health service (06) ==
LOC: OR 09:05 → 4SSUR 11:45 → OR 01-05 12:31
PROVIDERS: ATTEND Orthopaedic Surgery
CPT/HCPCS: 64447; 73501; 85025

== ENCOUNTER 2024-01-17 15:45 | Emergency (ER) | payer MEDICARE ==
--- NOTE | 2024-01-17 16:21 | ED ---
General Adult HPI - General Chief complaint: Extremity Injury, Lower Stated complaint: L hip dislocation Time Seen by Provider: 01/17/24 16:00 Source: patient, EMS, RN notes reviewed, old records reviewed Mode of arrival: EMS Limitations: no limitations - History of Present Illness Initial comments: This is a 78-year-old male who presents to the emergency department stating that he had a total hip replacement on 03 January. Patient states that he bent over a counter and felt a pop in his left hip and he believes his left hip to be dislocated currently. Patient denies any other pain or any other injuries. Patient states he is unable to move the leg at all and he is having some chronic knee pain however he states is unchanged from prior to bending over. - Related Data Home Medications Medication Instructions Recorded Confirmed Magnesium Gluconate [Magonate] 400 mg PO HS 11/15/15 01/04/24 Aspirin [Adult Low Dose Aspirin EC] 81 mg PO DAILY 04/26/17 01/04/24 Atorvastatin [Lipitor] 20 mg PO DAILY 04/15/20 01/04/24 Furosemide [Lasix] 20 mg PO DAILY PRN 04/15/20 01/04/24 Losartan Potassium [Cozaar] 50 mg PO HS 04/15/20 01/04/24 Ubidecarenone [Co Q-10] 200 mg PO DAILY 04/15/20 01/04/24 hydroCHLOROthiazide 12.5 mg PO HS 04/15/20 01/04/24 Primidone [Mysoline] 50 mg PO BID 06/10/20 01/04/24 B12(Unk) 1 tab PO DAILY 12/31/23 01/04/24 Celecoxib 200 mg PO DAILY 12/31/23 01/04/24 Isosorbide Dinitrate [Isordil] 30 mg PO DAILY 12/31/23 01/04/24 traMADol HCL 50 mg PO Q6H 12/31/23 01/04/24 Previous Rx's Medication Instructions Recorded Aspirin 81 mg PO BID #60 tab 01/05/24 Celecoxib [CeleBREX] 200 mg PO DAILY PRN #30 cap 01/05/24 Docusate [Colace] 100 mg PO BID #60 capsule 01/05/24 HYDROcodone/APAP 5-325MG [[place] 5] 1 - 2 each PO Q6HR PRN #48 tab 01/05/24 Omeprazole 20 mg PO DAILY #30 tab 01/05/24 Ondansetron [Zofran] 4 mg PO Q6HR PRN #30 tab 01/05/24 Allergies Allergy/AdvReac Type Severity Reaction Status Date / Time No Known Allergies Allergy Verified 01/17/24 15:53 Review of Systems ROS Statement: Those systems with pertinent positive or pertinent negative responses have been documented in the HPI. ROS Other: All systems not noted in ROS Statement are negative. Past Medical History Past Medical History: Coronary Artery Disease (CAD), GERD/Reflux, Hyperlipidemia, Hypertension, Osteoarthritis (OA) Additional Past Medical History / Comment(s): Tinnitis bilateral ears, essential tremors, occasional edema reanna legs,[place], physical therapy to assist with balance that comes and goes History of Any Multi-Drug Resistant Organisms: MRSA Date of last positivie culture/infection: 12/24/23 MDRO Source:: nasal; leg Past Surgical History: Heart Catheterization With Stent, Joint Replacement, Orthopedic Surgery, Tonsillectomy Additional Past Surgical History / Comment(s): rt knee replacement x2, 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, rt hip replacement, rt hand surgery, deviated septum sx, reanna cataract sx and reanna laser sx, PAIN CLINIC PROCEDURES Past Anesthesia/Blood Transfusion Reactions: Motion Sickness Additional Past Anesthesia/Blood Transfusion Reaction / Comment(s): sneezing Date of Last Stent Placement:: 3-4 yrs ago Past Psychological History: No Psychological Hx Reported Smoking Status: Former smoker Past Alcohol Use History: Occasional Past Drug Use History: None Reported - Past Family History Sister(s) Family Medical History: Cancer Additional Family Medical History / Comment(s): Twin sisters with breast cancer. Mother Family Medical History: Osteoarthritis (OA) Father Family Medical History: Osteoarthritis (OA) Additional Family Medical History / Comment(s): Father is living and is in his 90's. General Exam - General Exam Comments Initial Comments: GENERAL: Patient is well-developed and well-nourished. Patient is nontoxic and well- hydrated and is in moderate distress. ENT: Neck is soft and supple. No significant lymphadenopathy is noted. Oropharynx is clear. Moist mucous membranes. Neck has full range of motion without eliciting any pain. EYES: The sclera were anicteric and conjunctiva were pink and moist. Extraocular movements were intact and pupils were equal round and reactive to light. Eyelids were unremarkable. PULMONARY: Unlabored respirations. Good breath sounds bilaterally. No audible rales rhonchi or wheezing was noted. CARDIOVASCULAR: There is a regular rate and rhythm without any murmurs gallops or rubs. ABDOMEN: Soft and nontender with normal bowel sounds. SKIN: Skin is clear with no lesions or rashes and otherwise unremarkable. NEUROLOGIC: Patient is alert and oriented x3. Cranial nerves II through XII are grossly intact. Motor and sensory are also intact. Normal speech, volume and content. Symmetrical smile. MUSCULOSKELETAL: Patient is having pain on lateral aspect of his left hip. There is no knee pain. Unable to assess range of motion because it is causing the patient too much pain LYMPHATICS: No significant lymphadenopathy is noted PSYCHIATRIC: Normal psychiatric evaluation. Limitations: no limitations Course Vital Signs 01/17/24 01/17/24 01/17/24 15:46 16:28 17:00 Temperature 98.2 F Pulse Rate 91 86 77 Respiratory 18 18 18 Rate Blood Pressure 156/92 136/100 150/97 O2 Sat by Pulse 99 97 98 Oximetry 01/17/24 01/17/24 01/17/24 17:31 17:37 17:42 Temperature Pulse Rate 79 86 77 Respiratory 16 17 14 Rate Blood Pressure 134/98 154/91 176/118 O2 Sat by Pulse 97 100 92 L Oximetry Procedures - Procedural Sedation *Procedural Sedation Start Time: 17:37 *Procedural Sedation Stop Time: 18:10 *Risks,benefits, and alternative therapies discussed?: Yes *Patient indicates understanding of risk/benefit discussion?: Yes *Indications: fracture/dislocation reduction *Previous Adverse Reaction to Anesthesia/Sedation?: No *ASA Class: II *Mallampati Airway Score: 2 *Time of Last PO Intake: 13:00 Preparation: customer sales representative applied, pulse oximeter, capnometry used, supplemental O2 applied IV Propofol Dose (mgs): 150 Complications: none Patient Tolerated Procedure: well Medical Decision Making - Medical Decision Making Was pt. sent in by a medical professional or institution (MADELEINE Ramon, SPACECRAFT SYSTEMS ENGINEER, urgent care, hospital, or long-term...) When possible be specific @ -[facility] in by [facility] Did you speak to anyone other than the patient for history (EMS, parent, family, police, friend...)? What history was obtained from this source @ -No Did you review nursing and triage notes (agree or disagree)? Why? @ -I reviewed and agree with nursing and triage notes Were old charts reviewed (outside hosp., previous admission, EMS record, old EKG, old radiological studies, urgent care reports/EKG's, long-term records)? Report findings @ -No old charts were reviewed Differential Diagnosis? @ -Postoperative complications, hip dislocation, fractured femur, this is not an all-inclusive list EKG interpreted by me (3pts min.). @ -As above X-rays interpreted by me (1pt min.). @ -X-ray shows a dislocated left hip. Postreduction x-ray shows a hip that has been properly reduced CT interpreted by me (1pt min.). @ -None done U/S interpreted by me (1pt. min.). @ -None done What testing was considered but not performed or refused? (CT, X-rays, U/S, labs)? Why? @ -None What meds were considered but not given or refused? Why? @ -None Did you discuss the management of the patient with other professionals (professionals i.e. , PA, SPACECRAFT SYSTEMS ENGINEER, lab, RT, psych nurse, social media marketing analyst, stage driver, teacher, anti air warfare operations officer, housing case manager)? Give summary @ -I spoke with Dr. Nunez he came over to assess the patient and eventually he did the procedure to put the hip in place why did conscious sedation Was smoking cessation discussed for >3mins.? @ -No Was critical care preformed (if so, how long)? @ -No Were there social determinants of health that impacted care today? How? (Homelessness, low income, unemployed, alcoholism, drug addiction, transportation, low edu. Level, literacy, decrease access to med. care, longterm, rehab)? @ -No Was there de-escalation of care discussed even if they declined (Discuss DNR or withdrawal of care, Hospice)? DNR status @ -No What co-morbidities impacted this encounter? (DM, HTN, Smoking, COPD, CAD, Cancer, CVA, ARF, Chemo, Hep., AIDS, mental health diagnosis, sleep apnea, morbid obesity)? @ -None Was patient admitted / discharged? Hospital course, mention meds given and route, prescriptions, significant lab abnormalities, going to OR and other pe rtinent info. @ -Dr. Nunez reduce the hip by consciously sedated the patient. Procedure went without complication postreduction films show proper reduction of the hip Undiagnosed new problem with uncertain prognosis? @ -No Drug Therapy requiring intensive monitoring for toxicity (Heparin, Nitro, Insulin, Cardizem)? @ -No Were any procedures done? @ -No Diagnosis/symptom? @ -Left hip reduction Acute, or Chronic, or Acute on Chronic? @ -Acute Uncomplicated (without systemic symptoms) or Complicated (systemic symptoms)? @ -Complicated Side effects of treatment? @ -No Exacerbation, Progression, or Severe Exacerbation? @ -No Poses a threat to life or bodily function? How? (Chest pain, [place], [place], pneumonia, PE, COPD, DKA, ARF, appy, cholecystitis, CVA, Diverticulitis, Homicidal, Suicidal, threat to staff... and all critical care pts) @ -No Disposition Clinical Impression: Dislocation, hip Disposition: HOME SELF-CARE Condition: Good Instructions (If sedation given, give patient instructions): Hip Dislocation (ED) Is patient prescribed a controlled substance at d/c from ED?: No Referrals: Osei Winters MD [Primary Care Provider] - 1-2 days Time of Disposition: 17:53
[2024-01-17] MEDS: HYDROmorphone 1 MG/ML 1 ML SYRINGE IVP STA (16:30)
[2024-01-17] MEDS ORDERED: ONDANSETRON 4 MG/2 ML VIAL IVP PRN (17:15)
[2024-01-17] MEDS: PROPOFOL 10 MG/ML 20 ML VIAL IV ONE (17:38)
[2024-01-17 18:07] VITALS: RESP 17
[2024-01-17] MEDS: SODIUM CHLORIDE 0.9% 1,000 ML IV ONE (18:12)
--- NOTE | 2024-01-17 18:25 | XR ---
EXAMINATION TYPE: XR Hip LT and AP Pelvis DATE OF EXAM: 01/17/2024 COMPARISON: None HISTORY: Patient bent over, pain TECHNIQUE: AP pelvis and left hip FINDINGS: There is dislocation of the femoral prosthesis from the acetabular component on the left. R ight femoral prosthesis and acetabular component. Abnormal orientation No acute fractures are evident. Symphysis pubis and sacroiliac joints appear unremarkable. IMPRESSION: 1. Dislocation of the left femoral prosthesis from the acetabular component [facility], Workstation: [facility], 01/17/2024 6:23 PM
--- NOTE | 2024-01-17 18:35 | XR ---
EXAMINATION TYPE: XR Hip Limited LT DATE OF EXAM: 01/17/2024 COMPARISON: Earlier exam HISTORY: Post reduction, dislocation prosthesis TECHNIQUE: Single AP view left hip FINDINGS: The femoral prosthesis appears to orient normally with the acetabulum. No acute fractures a re evident. IMPRESSION: 1. Reduction of prior dislocated prosthesis. [facility], Workstation: [facility], 01/17/2024 6:33 PM
[2024-01-17 18:50] VITALS: BP 148/87; PULSE 80; TEMP 98.6
== END 2024-01-17 18:56 | disposition home or self-care (01) ==
LOC: EC 15:45
DX: S73.005A Unspecified dislocation of left hip, initial encounter (principal); Z87.891 Personal history of nicotine dependence; X58.XXXA Exposure to other specified factors, initial encounter
CPT/HCPCS: 73501; 73502; 99284; 99152; 99153; 96374; J1171; J2704